=== PATIENT | female | born 1950 | race Caucasian/White ===

== ENCOUNTER → 2017-04-07 | Outpatient (CLI) | payer MEDICARE, OTHER ==
[~2017-04-07] MED LIST: ASPIRIN 81M81 MG/TA2 PO; CELEXA 20MG20 MG/TAB PO; CORGARD80 MG PO; DUO-KAPS1 CAP PO; FISH OIL SUPER1 SGL PO; HCTZ 25MG TAB25 MG PO; K-99595 MG PO; KLOR-CON 1010 MEQ PO; LEVAQUIN 2250 MG/TAB PO; MAGNESIUM CITRA1 TAB PO; MAVIK2 MG PO; NORVASC 5MG5 MG/TAB PO; VITAMIN B122500 MCG PO; VITAMINC1000TA PO
== END ==
LOC: COL.RAD 08:55
DX: N30.20 Other chronic cystitis without hematuria (principal)

== ENCOUNTER → 2017-08-15 | Outpatient (CLI) | payer OTHER, MEDICARE | LOC: MC.RAD 14:20 | DX: Z12.31 Encounter for screening mammogram for malignant neoplasm of breast (principal); N64.89 Other specified disorders of breast ==

== ENCOUNTER → 2017-08-22 | Outpatient (CLI) | payer OTHER, MEDICARE | LOC: MC.RAD 07:30 | DX: N63 Unspecified lump in breast (principal); N64.89 Other specified disorders of breast ==

== ENCOUNTER → 2017-08-26 | Outpatient (CLI) | payer OTHER, MEDICARE | LOC: MC.RAD 09:55 | DX: Z12.31 Encounter for screening mammogram for malignant neoplasm of breast (principal); N63 Unspecified lump in breast; Z98.82 Breast implant status ==

== ENCOUNTER 2017-09-12 06:59 | Day surgery (SDC) | payer BC, MEDICARE ==
[~2017-09-12] VITALS: Ht 167.6 cm; Wt 106.6 kg
[2017-09-12 08:33] VITALS: BP 130/72; PULSE 62; TEMP 97.9
[2017-09-12] MEDS ORDERED: MAVIK4 MG PO (09:00)
[2017-09-12] MEDS ORDERED: TRICOR 48MG48 MG PO (09:01)
[2017-09-12] MEDS ORDERED: CALCIUM CARBON650 M2 PO (09:02)
[2017-09-12] MEDS ORDERED: TURMERIC500 MG PO (09:03)
[2017-09-12] MEDS ORDERED: GINKGO2 PO (09:04)
[2017-09-12] MEDS ORDERED: B-121000 MCG PO (09:05)
[2017-09-12] MEDS ORDERED: FOLIC ACID800 MCG PO (09:08)
[2017-09-12] MEDS ORDERED: KRILL OIL 3001 EACH PO (09:09)
[2017-09-12] MEDS ORDERED: CRANBERRY 100 M1 SGL PO (09:10)
[2017-09-12 10:31] VITALS: BP 99/52; PULSE 56
[2017-09-12] MEDS ORDERED: NORCO 325 MG-51 TAB PO (10:32)
[2017-09-12 10:46] VITALS: BP 106/56; PULSE 55
[2017-09-12 11:01] VITALS: BP 102/61; PULSE 62
[2017-09-12 11:16] VITALS: BP 123/67; PULSE 63
== END 2017-09-12 11:47 | disposition home or self-care (01) ==
LOC: SDCO 06:59
DX: D05.12 Intraductal carcinoma in situ of left breast (principal); E66.09 Other obesity due to excess calories; Z68.39 Body mass index [BMI] 39.0-39.9, adult; I12.9 Hypertensive chronic kidney disease with stage 1 through stage 4 chronic kidney disease, or unspecified chronic kidney disease; N18.3 Chronic kidney disease, stage 3 (moderate)
CPT/HCPCS: J0690; J2250; J2704; J3010; J7030

== ENCOUNTER → 2018-04-20 | Outpatient (CLI) | payer MEDICARE, OTHER ==
[~2018-04-20] MED LIST changes: +B-121000 MCG PO; +CALCIUM CARBON650 M2 PO; +CRANBERRY 100 M1 SGL PO; +FOLIC ACID800 MCG PO; +GINKGO2 PO; +KRILL OIL 3001 EACH PO; +MAVIK4 MG PO; +NORCO 325 MG-51 TAB PO; +TRICOR 48MG48 MG PO; +TURMERIC500 MG PO
== END ==
LOC: MC.RAD 08:26
DX: Z08 Encounter for follow-up examination after completed treatment for malignant neoplasm (principal); N63.21 Unspecified lump in the left breast, upper outer quadrant; Z98.890 Other specified postprocedural states; Z85.3 Personal history of malignant neoplasm of breast

== ENCOUNTER → 2018-09-07 | Outpatient (CLI) | payer MEDICARE, OTHER | LOC: MC.RAD 13:09 | DX: Z12.31 Encounter for screening mammogram for malignant neoplasm of breast (principal); Z98.890 Other specified postprocedural states ==

== ENCOUNTER 2018-11-06 08:58 | Inpatient (IN) | payer MEDICARE, OTHER ==
[~2018-11-06] VITALS: Ht 167.6 cm; Wt 111.6 kg
[2018-11-06 09:27] VITALS: BP 133/59; PULSE 61; TEMP 97.2
[2018-11-06] MEDS ORDERED: OMEGA-3 1000 MG1 CAP PO (09:50)
[2018-11-06 11:09] LABS: BASO % 0.3 % (0.0-2.0); EOS # 0.3 (0.0-0.7); EOS % 2.7 % (0-4.0); GRAN # 7.1 (1.4-6.5); GRAN % 72.6 % (42.2-75.2); HEMATOCRIT 37.1 % (37.0-47.0); HEMOGLOBIN 11.5 g/dl (12.5-16.0); LYMPH # 1.4 (1.2-3.4); LYMPH % 14.5 % (20.0-51.0); MEAN CELL VOLUME 84 fl (80.0-100.0); MEAN CORPUSCULAR HEMOGLOBIN 26 pg (27.0-31.0); MEAN CORPUSCULAR HGB CONC 31 g/dl (33.0-37.0); MEAN PLATELET VOLUME 10.4 fl (7.4-10.4); MONO # 0.9 (0.1-0.6); PLATELET COUNT 290 K/mm3 (130-400); RED BLOOD COUNT 4.41 M/mm3 (4.10-5.30); REDCELL DISTRIBUTION WIDTH-CV 15.7 % (11.5-14.5)
[2018-11-06 11:16] LABS: INR 1.1 (0.8-3.0); PROTHROMBIN TIME 12.1 SECONDS (9.7-12.8)
[2018-11-06 11:18] LABS: PARTIAL THROMBOPLASTIN TIME 33.1 SECONDS (26.0-37.0)
[2018-11-06 11:30] LABS: BILIRUBIN,TOTAL 0.5 mg/dL (0.0-1.0); CALCIUM 10.2 mg/dL (8.4-10.2); TOTAL PROTEIN 7.3 gm/dL (6.4-8.2)
[2018-11-06 11:31] LABS: CREATININE, serum 4.6 mg/dL (0.52-1.25)
[2018-11-06 12:04] VITALS: BP 143/63; PULSE 63; TEMP 97.5
[2018-11-06] MEDS ORDERED: LASIX ORAL S10 MG/ML PO (12:33)
[2018-11-06] MEDS ORDERED: APRESOLINE50 MG PO (12:34)
[2018-11-06 14:26] LABS: COLLECTION METHOD CLEAN CATCH
[2018-11-06 14:42] LABS: PH 6 (5-8); SQUAMOUS EPITHELIAL None Seen /hpf; URINE APPEARANCE Clear; URINE BACTERIA Rare /hpf; URINE BILIRUBIN Negative (NEGATIVE); URINE BLOOD 1+ (NEGATIVE); URINE COLOR Yellow; URINE GLUCOSE 1+ (NEGATIVE); URINE KETONE Negative (NEGATIVE); URINE LEUKOCYTE ESTERASE 2+ (NEGATIVE); URINE NITRATE Negative (NEGATIVE); URINE PROTEIN(semi-quant) 2+ (NEGATIVE); URINE RBC 0-2 /hpf; URINE UROBILINOGEN Negative (NEGATIVE); URINE WBC 20-50 /hpf
[2018-11-06 15:58] VITALS: BP 150/56; PULSE 66; TEMP 98.2
[2018-11-06 19:55] VITALS: BP 145/57; PULSE 64; TEMP 97.5
[2018-11-07] VITALS (7 sets, daily range): BP systolic 131–157; BP diastolic 50–65; PULSE 58–64; TEMP 97.7–98.3
[2018-11-07 07:15] LABS: ALBUMIN 3.5 gm/dL (3.5-5.0); CALCIUM 9.6 mg/dL (8.4-10.2); PHOSPHOROUS 5.5 mg/dL (2.5-4.5); POTASSIUM 3.9 mmol/L (3.4-5.0)
[2018-11-07 07:27] LABS: CREATININE, serum 4.81 mg/dL (0.52-1.25)
[2018-11-08 03:48] VITALS: BP 159/71; PULSE 64; TEMP 97.9
[2018-11-08 07:18] LABS: BASO % 0.3 % (0.0-2.0); EOS # 0.2 (0.0-0.7); EOS % 2.7 % (0-4.0); GRAN % 67.6 % (42.2-75.2); HEMATOCRIT 38.6 % (37.0-47.0); LYMPH # 1.7 (1.2-3.4); LYMPH % 19.1 % (20.0-51.0); MEAN CELL VOLUME 83 fl (80.0-100.0); MEAN CORPUSCULAR HEMOGLOBIN 26 pg (27.0-31.0); MEAN CORPUSCULAR HGB CONC 31 g/dl (33.0-37.0); MEAN PLATELET VOLUME 10.6 fl (7.4-10.4); MONO # 0.8 (0.1-0.6); MONO % 9.5 % (1.7-9.3); PLATELET COUNT 296 K/mm3 (130-400); RED BLOOD COUNT 4.65 M/mm3 (4.10-5.30); REDCELL DISTRIBUTION WIDTH-CV 15.3 % (11.5-14.5)
[2018-11-08 07:31] LABS: ALBUMIN 3.8 gm/dL (3.5-5.0); PHOSPHOROUS 5.7 mg/dL (2.5-4.5)
[2018-11-08 07:36] LABS: CREATININE, serum 5.1 mg/dL (0.52-1.25)
[2018-11-08 07:50] VITALS: BP 134/66; PULSE 56; TEMP 97.8
[2018-11-08 10:59] VITALS: BP 159/69; PULSE 61; TEMP 97.5
[2018-11-08] MEDS ORDERED: MAVIK4 MG PO (13:57)
[2018-11-08] MEDS ORDERED: LEVAQUIN 5500 MG/TA1 PO (14:01)
[2018-11-08] MEDS ORDERED: LASIX 20MG TABL20 MG PO (14:02)
== END 2018-11-08 14:55 | disposition home or self-care (01) | DRG 683 ==
LOC: MEDICAL 08:58
PROVIDERS: Internal Medicine Nephrology
DX: N17.0 Acute kidney failure with tubular necrosis (principal); N39.0 Urinary tract infection, site not specified; I12.9 Hypertensive chronic kidney disease with stage 1 through stage 4 chronic kidney disease, or unspecified chronic kidney disease; B96.20 Unspecified Escherichia coli [E. coli] as the cause of diseases classified elsewhere; N18.4 Chronic kidney disease, stage 4 (severe); E66.01 Morbid (severe) obesity due to excess calories; Z68.39 Body mass index [BMI] 39.0-39.9, adult; F17.210 Nicotine dependence, cigarettes, uncomplicated; E78.5 Hyperlipidemia, unspecified; N25.81 Secondary hyperparathyroidism of renal origin; Z85.828 Personal history of other malignant neoplasm of skin
CPT/HCPCS: OP

== ENCOUNTER → 2018-11-13 | Outpatient (CLI) | payer MEDICARE, OTHER ==
[~2018-11-13] MED LIST changes: +APRESOLINE50 MG PO; +LASIX 20MG TABL20 MG PO; +LASIX ORAL S10 MG/ML PO; +LEVAQUIN 5500 MG/TA1 PO; +OMEGA-3 1000 MG1 CAP PO
== END ==
LOC: COL.VAS 10:00
DX: N18.4 Chronic kidney disease, stage 4 (severe) (principal)
CPT/HCPCS: G0365

== ENCOUNTER → 2019-05-21 | Outpatient (CLI) | payer MEDICARE, OTHER | LOC: COL.PUL 10:53 | DX: I34.0 Nonrheumatic mitral (valve) insufficiency (principal); I51.7 Cardiomegaly; Z77.22 Contact with and (suspected) exposure to environmental tobacco smoke (acute) (chronic) | CPT/HCPCS: J7674 ==

== ENCOUNTER 2019-10-21 11:54 | Inpatient (IN) | payer MEDICARE, OTHER ==
[~2019-10-21] VITALS: Ht 167.6 cm; Wt 88.1 kg
[~2019-10-21 11:54] MED LIST changes: -LOPRESSOR 225 MG/TAB PO; -NEURONTIN100 MG/CAP PO; -NORVASC 10MG10 MG PO; -THEO-24400 MG PO; -ZOLOFT 50MG50 MG PO
[2019-10-21 12:31] LABS: MEAN CELL VOLUME 89 fl (80.0-100.0); MEAN CORPUSCULAR HGB CONC 31 g/dl (33.0-37.0); MEAN PLATELET VOLUME 9.7 fl (7.4-10.4); PLATELET COUNT 216 K/mm3 (130-400); RED BLOOD COUNT 3.49 M/mm3 (4.10-5.30); REDCELL DISTRIBUTION WIDTH-CV 18.5 % (11.5-14.5)
[2019-10-21 12:33] LABS: HEMATOCRIT 31.1 % (37.0-47.0); HEMOGLOBIN 9.7 g/dl (12.5-16.0); MEAN CORPUSCULAR HEMOGLOBIN 28 pg (27.0-31.0)
[2019-10-21 12:44] LABS: ALBUMIN 3.7 gm/dL (3.5-5.0); BILIRUBIN,TOTAL 0.6 mg/dL (0.0-1.0); CALCIUM 9.9 mg/dL (8.4-10.2); CREATININE, serum 10.23 (0.52-1.25); POTASSIUM 4.1 mmol/L (3.4-5.0)
[2019-10-21 12:56] LABS: C-REACTIVE PROTEIN 15.8 mg/dL (0.0-0.9)
[2019-10-21 12:59] LABS: BAND 40 % (0-10); LYMPHOCYTE 2 % (20.0-51.0); METAMYELOCYTE 2 % (0-0); NEUTROPHILS 53 % (42.0-75.2); PLATELET ESTIMATE NORMAL (NORMAL)
[2019-10-21 13:10] LABS: TROPONIN-I 0.027 ng/mL (0.000-0.035)
[2019-10-21] MEDS ORDERED: NORVASC 10MG10 MG PO (14:14)
[2019-10-21] MEDS ORDERED: LOPRESSOR 225 MG/TAB PO (14:16)
[2019-10-21] MEDS ORDERED: THEO-24400 MG PO (14:16)
[2019-10-21] MEDS ORDERED: ZOLOFT 50MG50 MG PO (14:16)
[2019-10-21] MEDS ORDERED: NEURONTIN100 MG/CAP PO (14:17)
[2019-10-21 16:45] VITALS: BP 150/61; PULSE 97; TEMP 98
--- NOTE | 2019-10-21 18:41 | NUR ---
Assessment completed, alert/oriented, vital signs stable, denies pain, reports feeling genearal fatigue and malaise, she has a non-productive cough/ lungs coarse and diminished, Negative for influenza A & B, WBC >21, blood Cx and Urine Cx collected, heart RRR/ distal pulses are palpable, she has left arm dialysis fistula/ +bruit and thrill, I have updated meds lists/ pharmacy/allergies, I have notified of her arrival to the floor
[2019-10-21 19:07] LABS: COLLECTION METHOD CLEAN CATCH
[2019-10-21 19:09] LABS: MUCOUS Present /lpf; PH 5 (5-8); SQUAMOUS EPITHELIAL 0-2 /hpf; URINE APPEARANCE Clear; URINE BACTERIA None Seen /hpf; URINE BILIRUBIN Negative (NEGATIVE); URINE BLOOD 3+ (NEGATIVE); URINE COLOR Amber; URINE GLUCOSE Negative (NEGATIVE); URINE KETONE Negative (NEGATIVE); URINE LEUKOCYTE ESTERASE 2+ (NEGATIVE); URINE NITRATE Negative (NEGATIVE); URINE PROTEIN(semi-quant) 2+ (NEGATIVE); URINE RBC >50 /hpf; URINE UROBILINOGEN Negative (NEGATIVE)
[2019-10-21 19:34] VITALS: BP 128/47; PULSE 89; TEMP 98.9
--- NOTE | 2019-10-21 20:30 | NUR ---
Initial shift assessment done- sitting at edge of bed- no requests, visiting with daughter- denies pain. Tele on, non productive cough. Had some home meds at bedside- teaching done regarding we will give all her meds here- safety issue so we know what she has taken- states understanding -will have daughter take her meds home-
[2019-10-21 23:19] VITALS: BP 130/51; PULSE 80; TEMP 98.9
--- NOTE | 2019-10-22 04:40 | NUR ---
Dr. Brar called with positive blood cultures results- e coli,,order to continue cefipime QD 2 gm IV
--- NOTE | 2019-10-22 06:19 | NUR ---
No requests- has been resting on and off-VSS
--- NOTE | 2019-10-22 07:00 | NUR ---
Pt is sitting up in bed. Denies any needs at this time. Call light is within reach.
[2019-10-22 07:36] LABS: MEAN CELL VOLUME 90 fl (80.0-100.0); MEAN CORPUSCULAR HGB CONC 31 g/dl (33.0-37.0); MEAN PLATELET VOLUME 10.5 fl (7.4-10.4); PLATELET COUNT 211 K/mm3 (130-400); RED BLOOD COUNT 3.03 M/mm3 (4.10-5.30); REDCELL DISTRIBUTION WIDTH-CV 18.9 % (11.5-14.5)
[2019-10-22 07:39] LABS: ALBUMIN 3.3 gm/dL (3.5-5.0); CALCIUM 9.7 mg/dL (8.4-10.2); CREATININE, serum 10.68 (0.52-1.25); POTASSIUM 4.7 mmol/L (3.4-5.0)
[2019-10-22 07:42] LABS: HEMATOCRIT 27.3 % (37.0-47.0); HEMOGLOBIN 8.5 g/dl (12.5-16.0); MEAN CORPUSCULAR HEMOGLOBIN 28 pg (27.0-31.0)
--- NOTE | 2019-10-22 08:30 | NUR ---
Pt is awake and A/Ox4, sitting up in bed eating breakfast. Pt denies pain or discomfort. Saline lock to right AC is free of complications. Fistula to left arm noted. Pt is up as tolerated in room. Denies any other needs. [facility] student, Willa assisting with AM cares.
--- NOTE | 2019-10-22 08:45 | NUR ---
BINA Pérez notified of critical lab values and that pt does not have current order for VTE prophalyxis.
[2019-10-22 09:05] LABS: BAND 29 % (0-10); LYMPHOCYTE 5 % (20.0-51.0); MYELOCYTE 1 % (0-0); NEUTROPHILS 65 % (42.0-75.2); PLATELET ESTIMATE NORMAL (NORMAL)
--- NOTE | 2019-10-22 10:18 | NUR ---
I agree with [facility] students shift assessment.
--- NOTE | 2019-10-22 10:50 | NUR ---
Initial visit; Patient thanked Building Repair Maintenance Supervisor for looking in on her, letting her know of the availability of spiritual care.
[2019-10-22 12:44] VITALS: BP 156/60; PULSE 81; TEMP 98.4
--- NOTE | 2019-10-22 13:56 | NUR ---
Primary nurse was assisted with [phone] patient care by [facility] students Willa Najera, [phone] by Isabella Lucio & [facility] instructor Starr Martinez RN-.
[2019-10-22 15:12] VITALS: BP 125/73; PULSE 89; TEMP 98.4
--- NOTE | 2019-10-22 15:40 | NUR ---
Pulp Drier Firer met with patient to discuss discharge planning. Patient lives in [place] with her , Prosper ([phone]) and sees Dr. Hillman for primary care. Patient obtains her medications from [facility] with no difficulty although she reports there was a recent incident in which she did not get her antibiotic filled due to a mix up with the [facility] Pharmacist. Patient reports independence with ADLS and does not have any DME. Patient doesn't think she has DPOA-HC and wanted to complete the form with SW. AWA assisted patient in completing form which designates her daughter Maggie. AWA and RNJosselyn witnessed patient signature. AWA placed copy of form in chart and provided original and two copies to patient. Patient plans to return home upon discharge.
[2019-10-22 18:16] LABS: URINE PROTEIN:CREAT RATIO 4.96 (0.00-0.14)
--- NOTE | 2019-10-22 18:27 | NUR ---
Pt has had an uneventful day. Pt continues to have minimal urine output despite increased oral intake. Pt denies any other needs.
[2019-10-22 20:19] VITALS: BP 134/50; PULSE 89; TEMP 99
[2019-10-22 23:22] VITALS: BP 141/56; PULSE 60; TEMP 98.3
--- NOTE | 2019-10-23 00:40 | NUR ---
Patient assessed at this time. Alert and oriented x 4, and able to make needs known. Denies having pain and discomfort at this time. Right AC INT flushed. Site is without redness, warmth, swelling, and pain. AV fistula to left forearm with positive bruit and thrill. Denies having SOB and dyspnea. Occasional moist cough. Reports sputum is clear, thick, and a moderate amount. Unable to observe at this time. LS CTA in upper lobes, diminished in lower lobes. Respirations even and unlabored. HRR. Telemetry in place-normal sinus. Capillary refill less than 3 seconds. Non-tenting skin turgor. BSAx4. Abdomen soft and non-tender. Reports she had a small amount of diarrea earlier this shift. No edema noted. Voices no questions, needs, or concerns at this time. In recliner with call light within reach.
[2019-10-23 03:29] VITALS: BP 143/63; PULSE 85
[2019-10-23 07:27] VITALS: BP 130/64; PULSE 84; TEMP 98.8
--- NOTE | 2019-10-23 08:00 | NUR ---
Assessment completed, alert/oriented, vital signs stable, denies pain or discomfort, reports still having intermittent coughing spells, lungs are diminished but clear, heart RRR, distal pulses are palpable, left arm fistula/ +bruit and thrill, morning labs are still pending, morning meds given and she is waiting on breakfast, denies other needs at this time
[2019-10-23 08:33] LABS: MEAN CELL VOLUME 89 fl (80.0-100.0); MEAN CORPUSCULAR HGB CONC 31 g/dl (33.0-37.0); MEAN PLATELET VOLUME 10.6 fl (7.4-10.4); PLATELET COUNT 193 K/mm3 (130-400); RED BLOOD COUNT 2.93 M/mm3 (4.10-5.30); REDCELL DISTRIBUTION WIDTH-CV 18.4 % (11.5-14.5)
[2019-10-23 08:55] LABS: ALBUMIN 3.2 gm/dL (3.5-5.0); CALCIUM 9.4 mg/dL (8.4-10.2); CREATININE, serum 10.59 (0.52-1.25); POTASSIUM 4.2 mmol/L (3.4-5.0)
[2019-10-23 08:56] LABS: HEMATOCRIT 26.1 % (37.0-47.0); HEMOGLOBIN 8.2 g/dl (12.5-16.0); MEAN CORPUSCULAR HEMOGLOBIN 28 pg (27.0-31.0)
[2019-10-23 10:25] LABS: ANISOCYTOSIS 1+; BAND 1 % (0-10); EOSINOPHIL 1 % (0-4); LYMPHOCYTE 6 % (20.0-51.0); NEUTROPHILS 89 % (42.0-75.2); PLATELET ESTIMATE NORMAL (NORMAL)
[2019-10-23 11:29] VITALS: BP 141/66; PULSE 93; TEMP 98.5
[2019-10-23 16:45] VITALS: BP 154/70; PULSE 84; TEMP 97.5
[2019-10-23 19:46] VITALS: BP 131/60; PULSE 81; TEMP 98.6
--- NOTE | 2019-10-23 20:13 | NUR ---
Pt report from BINA Mckeon. Pt is sitting is recliner. No c/o pain or discomfort at this time. Assessment completed. Pt call light and phone within reach. Will continue to monitor. No further concerns at this time.
[2019-10-24 00:01] VITALS: BP 139/54; PULSE 81; TEMP 98.1
--- NOTE | 2019-10-24 00:40 | NUR ---
Pt is laying in bed resting. No c/o pain, however her cough is bothersome. Pt call light and phone is within reach. Bed is locked and in low position. No further concerns at this time.
[2019-10-24 03:34] VITALS: BP 141/59; PULSE 84; TEMP 98.4
--- NOTE | 2019-10-24 07:39 | NUR ---
Report given to BINA Thibodeaux. Pt had an uneventful night. No further concerns.
[2019-10-24 07:53] VITALS: BP 147/68; PULSE 78; TEMP 97.7
[2019-10-24 08:06] LABS: MEAN CELL VOLUME 88 fl (80.0-100.0); MEAN CORPUSCULAR HGB CONC 32 g/dl (33.0-37.0); MEAN PLATELET VOLUME 10.5 fl (7.4-10.4); PLATELET COUNT 186 K/mm3 (130-400); RED BLOOD COUNT 2.88 M/mm3 (4.10-5.30); REDCELL DISTRIBUTION WIDTH-CV 18.1 % (11.5-14.5)
[2019-10-24 08:08] LABS: ALBUMIN 3.3 gm/dL (3.5-5.0); CALCIUM 9.8 mg/dL (8.4-10.2); CREATININE, serum 10.21 (0.52-1.25); HEMATOCRIT 25.4 % (37.0-47.0); MEAN CORPUSCULAR HEMOGLOBIN 28 pg (27.0-31.0); POTASSIUM 3.9 mmol/L (3.4-5.0)
[2019-10-24 08:33] LABS: ANISOCYTOSIS 1+; BAND 7 % (0-10); EOSINOPHIL 2 % (0-4); LYMPHOCYTE 6 % (20.0-51.0); METAMYELOCYTE 1 % (0-0); NEUTROPHILS 78 % (42.0-75.2); PLATELET ESTIMATE NORMAL (NORMAL)
--- NOTE | 2019-10-24 11:37 | NUR ---
Assessment completed, alert/oriented, vital signs stable and afebrile, denies pain or discomfort, stated she is still just feeling weak and tired with no energy, stated not eating much as nothing tastes good to her, WBC improving slowly and is at 18 today, reports her urine has cleared up/ for some reason someone removed hat and has not been measuring output/ I have instructed her that we need to be keeping accurate I/O's to help monitor her renal function and she verbalized understanding, lungs CTA/ no resp.difficulty noted, heart RRR/ distal pulses are palpable, denies other needs at this time,
[2019-10-24 12:22] VITALS: BP 145/71; PULSE 77; TEMP 98.6
[2019-10-24 16:13] VITALS: BP 138/58; PULSE 79; TEMP 98.2
--- NOTE | 2019-10-24 20:15 | NUR ---
Pt sitting in recliner. No c/o pain or discomfort. Assessment complete. No further concerns at this time.
[2019-10-24 20:31] VITALS: BP 146/64; PULSE 86; TEMP 99.1
[2019-10-25] VITALS (7 sets, daily range): BP systolic 131–159; BP diastolic 52–72; PULSE 77–119; TEMP 97.4–98.5
--- NOTE | 2019-10-25 05:57 | NUR ---
PT HAD AN UNREMARKABLE NIGHT. RESTED IN THE RECLINER THE MAJORITY OF THE NIGHT. NO C/O PAIN OR DISCOMFORT. CONTINUING TO FEEL BETTER, STILL NOT FEELING ANY FOOD TASTES GOOD. NO FURTHER CONCERNS AT THIS TIME.
[2019-10-25 06:40] LABS: MEAN CELL VOLUME 88 fl (80.0-100.0); MEAN CORPUSCULAR HGB CONC 31 g/dl (33.0-37.0); PLATELET COUNT 213 K/mm3 (130-400); RED BLOOD COUNT 3.09 M/mm3 (4.10-5.30); REDCELL DISTRIBUTION WIDTH-CV 17.7 % (11.5-14.5)
[2019-10-25 06:43] LABS: HEMATOCRIT 27.2 % (37.0-47.0); HEMOGLOBIN 8.4 g/dl (12.5-16.0); MEAN CORPUSCULAR HEMOGLOBIN 27 pg (27.0-31.0)
[2019-10-25 06:57] LABS: ALBUMIN 3.5 gm/dL (3.5-5.0); CALCIUM 9.8 mg/dL (8.4-10.2); CREATININE, serum 9.98 (0.52-1.25); PHOSPHOROUS 6.6 mg/dL (2.5-4.5); POTASSIUM 3.9 mmol/L (3.4-5.0)
[2019-10-25 07:37] LABS: BAND 4 % (0-10); EOSINOPHIL 1 % (0-4); LYMPHOCYTE 9 % (20.0-51.0); METAMYELOCYTE 6 % (0-0); MYELOCYTE 2 % (0-0); NEUTROPHILS 75 % (42.0-75.2); PLATELET ESTIMATE NORMAL (NORMAL)
[2019-10-25 08:04] LABS: PATHOLOGY DIFF REVIEW OK
--- NOTE | 2019-10-25 09:00 | NUR ---
Assessment completed. Patient alert and oriented x4. IV site dry and intact, no signs of infection or infiltration. Left forarm filstula palpated and ascultated. POC discussed w patient. Pt sitting by window, call light in reach.
--- NOTE | 2019-10-25 13:46 | NUR ---
AWA met with the patient to review discharge plan and to address concerns the patient's RN shared with AWA about the patient's having dementia and being at home alone. The patient reports that their children and her [id number] have been checking in on the patient while she is here. She states that she should tentatively be ready to discharge tomorrow and plans to return back home with her . She had no other questions or concerns for SW. AWA to continue to follow.
--- NOTE | 2019-10-25 18:00 | NUR ---
Assessment and note entered by BINA Brown reviewed and agreed by this nurse. Pt with uneventful shift, continues with decreased appetite, "doesn't like the food." Call light in reach.
--- NOTE | 2019-10-25 20:10 | NUR ---
PT SITTING UP IN BED. NO C/O OF PAIN. SOME DISCOMFORT FROM NAUSEA/VOMITTING. PT APPETITE STILL DECREASED. DID NOT EAT DINNER, JUST A COOKIE AND SOME GRAPES. PT STATING THAT SHE DOESN'T UNDERSTAND WHY SHE HAS BECOME INCREASINGLY CONFUSED. PT STATES SHE HAS A HARD TIME KEEPING HER TRAIN OF THOUGHT. PT DISPLAYS CONSIDERABLE AMOUNT OF ANXIETY REGARDING HER CONDITION AND WHY SHE FEELS THOUGH SHE ISN'T GETTING ANY BETTER. ASSESSMENT COMPLETED, CALL LIGHT AND PERSONAL BELONGINGS WITHIN REACH. NO FURTHER CONCERNS AT THIS TIME.
[2019-10-26 03:52] VITALS: BP 144/57; PULSE 85; TEMP 97.8
[2019-10-26 07:23] VITALS: BP 151/65; PULSE 80; TEMP 98
[2019-10-26 07:30] LABS: ALBUMIN 3.4 gm/dL (3.5-5.0); CALCIUM 10.3 mg/dL (8.4-10.2); CREATININE, serum 9.57 (0.52-1.25); PHOSPHOROUS 7.1 mg/dL (2.5-4.5); POTASSIUM 3.9 mmol/L (3.4-5.0)
[2019-10-26 07:36] LABS: MEAN CELL VOLUME 87 fl (80.0-100.0); MEAN CORPUSCULAR HGB CONC 31 g/dl (33.0-37.0); MEAN PLATELET VOLUME 10.8 fl (7.4-10.4); PLATELET COUNT 228 K/mm3 (130-400); RED BLOOD COUNT 2.97 M/mm3 (4.10-5.30); REDCELL DISTRIBUTION WIDTH-CV 17.2 % (11.5-14.5)
[2019-10-26 07:40] LABS: HEMATOCRIT 25.8 % (37.0-47.0); HEMOGLOBIN 8.1 g/dl (12.5-16.0); MEAN CORPUSCULAR HEMOGLOBIN 27 pg (27.0-31.0)
[2019-10-26 08:44] LABS: ANISOCYTOSIS 1+; BAND 2 % (0-10); EOSINOPHIL 2 % (0-4); HYPOCHROMIA 2+; LYMPHOCYTE 9 % (20.0-51.0); METAMYELOCYTE 1 % (0-0); MYELOCYTE 3 % (0-0); NEUTROPHILS 79 % (42.0-75.2); NUCLEATED RED BLOOD CELL 1 (0-6); PLATELET ESTIMATE NORMAL (NORMAL)
[2019-10-26 12:08] VITALS: BP 136/72; PULSE 78; TEMP 98
[2019-10-26 15:54] VITALS: BP 162/70; PULSE 82; TEMP 98.4
--- NOTE | 2019-10-26 19:10 | NUR ---
Patient left for CT at this time.
--- NOTE | 2019-10-26 19:40 | NUR ---
Patient returned from CT at this time.
--- NOTE | 2019-10-26 19:45 | NUR ---
Right AC not flushing at this time. IV catheter dressing has bloody drainage and catheter tip appears bent. Restarted in right wrist by BINA Nolen. Levaquin infusion started. Denies other needs at this time. Family at bedside.
--- NOTE | 2019-10-26 19:56 | NUR ---
Patient returned from CT scan at this time.
--- NOTE | 2019-10-26 20:00 | NUR ---
Dr. Brar called stating to inform patient and patient family patient CT was negative. Notified patient and family at this time.
[2019-10-26 21:13] VITALS: BP 158/57
--- NOTE | 2019-10-26 21:15 | NUR ---
Resting in recliner. Assessment complete. Lungs clear. Heart sounds normal. Bowels active x4. Pulses strong throughout. No edema noted at this time. INT right wrist flushed without complications. Denies pain. Patient having increased difficulty with following simple directions. Remains alert and orientated. Dr. Brar made aware by previous shift. Patient had head CT tonight which Dr. Brar called and informed patient and family CT was negative. Will continue to closely monitor patient.
--- NOTE | 2019-10-26 21:55 | NUR ---
Patient assessed to restroom and to bed at this time.
[2019-10-26 23:37] VITALS: BP 165/72; PULSE 78; TEMP 98.6
[2019-10-27] VITALS (7 sets, daily range): BP systolic 113–169; BP diastolic 53–78; PULSE 80–117; TEMP 97.6–98.7
--- NOTE | 2019-10-27 01:45 | NUR ---
Patient sitting up in bed. Repeatly stating "I dont know whats wrong with me, I dont know." Informed patient Dr. Brar will be in in AM to assess patient . Patient reports hunger. Provided with snack. Will monitor.
--- NOTE | 2019-10-27 03:28 | NUR ---
Patient up to restroom. Simple directions difficult for patient to follow. Difficulty with sentences and thought. Returned to bed. Will continue to monitor.
--- NOTE | 2019-10-27 06:03 | NUR ---
Patient sitting up in bed this AM talking to self. When questioned if patient is seeing people in room patient states "Am I talking to anyone?" Patient disorientated at this time. Asked staff "where am I?" erin Flores supervisior calling Dr. Brar this AM and will notify Dr. Brar of patient changes.
--- NOTE | 2019-10-27 07:16 | NUR ---
Report given to BINA Mckeon
[2019-10-27 08:45] LABS: MEAN CELL VOLUME 87 fl (80.0-100.0); MEAN CORPUSCULAR HGB CONC 32 g/dl (33.0-37.0); MEAN PLATELET VOLUME 10.7 fl (7.4-10.4); PLATELET COUNT 254 K/mm3 (130-400); RED BLOOD COUNT 2.92 M/mm3 (4.10-5.30); REDCELL DISTRIBUTION WIDTH-CV 17.1 % (11.5-14.5)
[2019-10-27 08:48] LABS: HEMATOCRIT 25.5 % (37.0-47.0); HEMOGLOBIN 8.1 g/dl (12.5-16.0); MEAN CORPUSCULAR HEMOGLOBIN 28 pg (27.0-31.0)
[2019-10-27 09:01] LABS: ALBUMIN 3.5 gm/dL (3.5-5.0); CALCIUM 10.2 mg/dL (8.4-10.2); CREATININE, serum 9.48 (0.52-1.25); PHOSPHOROUS 6.9 mg/dL (2.5-4.5); POTASSIUM 3.7 mmol/L (3.4-5.0)
[2019-10-27 09:17] LABS: ANISOCYTOSIS 1+; HYPOCHROMIA 2+; LYMPHOCYTE 9 % (20.0-51.0); METAMYELOCYTE 4 % (0-0); MYELOCYTE 2 % (0-0); NEUTROPHILS 80 % (42.0-75.2)
[2019-10-27 09:18] LABS: PLATELET ESTIMATE NORMAL (NORMAL)
--- NOTE | 2019-10-27 10:54 | NUR ---
Assessment completed, alert/ oriented to person and place, she is easily distracted and has trouble following simple commands, she is having some trouble finding her words and sorting her thoughts at times, altered mental status seems to be worsening, CT head last night was negative, I have discussed plan of care with Elisa Xavier RN and , we have been in contact with family to keep them updated on plan of care as well, WBC improved slightly down to 16 today, creatnine 9.4, she is still weak and unsteady on her feet, we have hernando her a high fall risk and placed in propert p/c, will continue to monitor
--- NOTE | 2019-10-27 16:02 | NUR ---
SW met with the patient, patient's mother (Daria), and [id number] (Lee Ann) to review discharge plan and to discuss PT/OT's recommendations of post-acute rehab and having AMS. The patient's mother and gnekzlkv-gy-pde agree that the patient would not be able to discharge staight to home. They recommended SW contact her daughter and DPOA-HC, Maggie. SW contacted the patient's daughter, Maggie. Maggie is in agreeance with the patient needing post-acute rehab. SW explained Medicare.gov's list of nursing homes around [place]. The patient's daughter preferred 1) [facility] 2) [facility]. SW then reviewed these preferences with the patient and presented and explained the Patient Choice Form. The patient was agreeable to these preferences. She states that she is not up to signing, but gave SW her verbal consent. SW provided her a copy. AWA contacted and faxed a referral to both facilities. SW awaiting their screens.
--- NOTE | 2019-10-27 18:40 | NUR ---
Patients condition is unchanged throughout the shit, she remains menatlly altetered, still having trouble following simple commands/ Disorganized thoughts and trouble expressing her self at times, family has been kept in the loop by Dr. Brar and plan of care discussed
--- NOTE | 2019-10-27 20:00 | NUR ---
Assessment complete. Family at bedside. Alert. Verbal but slow to respond. Unable to verbalize curent date but pt understands why she is here. Follows command. Denies any pain or discomfort at this time. INT to RW patent, flushed, dressing CDI. LFA fistula bruit and thrill present. SCD in place while laying in bed. Fall precautions in place. Tele monitor in place, leads checked. Needs met at this time. Call light within reach.
--- NOTE | 2019-10-28 05:46 | NUR ---
Pt uneventful during this shift. Meds given as ordered. Fall precautions in place. Call light within reach.
--- NOTE | 2019-10-28 07:07 | NUR ---
Report given to BINA Sanz.
[2019-10-28 07:55] VITALS: BP 132/54; PULSE 81
[2019-10-28 08:26] LABS: MEAN CELL VOLUME 88 fl (80.0-100.0); MEAN CORPUSCULAR HGB CONC 31 g/dl (33.0-37.0); PLATELET COUNT 310 K/mm3 (130-400); RED BLOOD COUNT 3.05 M/mm3 (4.10-5.30); REDCELL DISTRIBUTION WIDTH-CV 16.7 % (11.5-14.5)
[2019-10-28 08:34] LABS: HEMATOCRIT 26.8 % (37.0-47.0); HEMOGLOBIN 8.3 g/dl (12.5-16.0); MEAN CORPUSCULAR HEMOGLOBIN 27 pg (27.0-31.0)
[2019-10-28 08:40] LABS: ALBUMIN 3.6 gm/dL (3.5-5.0); CALCIUM 10.3 mg/dL (8.4-10.2); CREATININE, serum 9.52 (0.52-1.25); PHOSPHOROUS 6.4 mg/dL (2.5-4.5); POTASSIUM 3.7 mmol/L (3.4-5.0)
[2019-10-28 09:09] LABS: BAND 7 % (0-10); EOSINOPHIL 2 % (0-4); LYMPHOCYTE 7 % (20.0-51.0); METAMYELOCYTE 2 % (0-0); MYELOCYTE 1 % (0-0); NEUTROPHILS 73 % (42.0-75.2)
[2019-10-28 09:10] LABS: ANISOCYTOSIS 1+; PLATELET ESTIMATE NORMAL (NORMAL)
--- NOTE | 2019-10-28 10:54 | NUR ---
Pt alert to person and place but confused to time. Pt IV patent with no redness or infiltration. Pt does want much to eat but did ask for a popsicle. Pt assessment and neuro's completed. Pt denies pain or SOB at this time. Pt's daughter in to see pt this am.
[2019-10-28 11:28] VITALS: BP 142/62; PULSE 77; TEMP 97.8
[2019-10-28 15:57] VITALS: BP 141/60; PULSE 74; TEMP 97.5
[2019-10-28 19:48] VITALS: BP 132/59; PULSE 84; TEMP 97.8
--- NOTE | 2019-10-28 21:30 | NUR ---
Patient in bed, awake. Denies pain. Oriented x4, but very forgetful and slow to respond at times. Ambulated to BR with standby assist and walker. Tolerated well, but is SOB with ambulation. L.S. clear, HR noted to be irregular, no tele ordered. Pt refused SCD's. Denies further needs at this time, will continue to monitor.
[2019-10-28 23:16] VITALS: BP 138/60; PULSE 76; TEMP 98.5
[2019-10-29 03:03] VITALS: BP 137/73; PULSE 82; TEMP 97.9
--- NOTE | 2019-10-29 04:43 | NUR ---
Patient in bed, sleeping. Appears comfortable. Will continue to monitor.
[2019-10-29 06:00] LABS: MEAN CELL VOLUME 88 fl (80.0-100.0); MEAN CORPUSCULAR HGB CONC 31 g/dl (33.0-37.0); MEAN PLATELET VOLUME 10.7 fl (7.4-10.4); PLATELET COUNT 297 K/mm3 (130-400); RED BLOOD COUNT 2.73 M/mm3 (4.10-5.30); REDCELL DISTRIBUTION WIDTH-CV 16.6 % (11.5-14.5)
[2019-10-29 06:07] LABS: HEMATOCRIT 23.9 % (37.0-47.0); HEMOGLOBIN 7.5 g/dl (12.5-16.0); MEAN CORPUSCULAR HEMOGLOBIN 27 pg (27.0-31.0)
[2019-10-29 06:14] LABS: ALBUMIN 3.1 gm/dL (3.5-5.0); CREATININE, serum 9.56 (0.52-1.25); PHOSPHOROUS 5.4 mg/dL (2.5-4.5); POTASSIUM 3.6 mmol/L (3.4-5.0)
[2019-10-29 06:39] LABS: BAND 11 % (0-10); EOSINOPHIL 2 % (0-4); LYMPHOCYTE 11 % (20.0-51.0); METAMYELOCYTE 3 % (0-0); MYELOCYTE 1 % (0-0); NEUTROPHILS 64 % (42.0-75.2)
[2019-10-29 06:40] LABS: ANISOCYTOSIS 1+; PLATELET ESTIMATE NORMAL (NORMAL)
[2019-10-29 07:46] VITALS: BP 151/73; PULSE 82; TEMP 97.8
--- NOTE | 2019-10-29 10:24 | NUR ---
Owen, at [facility], reports that they are able to accept the patient for a skilled stay. SW to inform the patient and family and will continue to follow.
--- NOTE | 2019-10-29 10:59 | NUR ---
Pt alert and oriented this am. Pt processing speed is slow at times for pt to find words. Pt has sister at bedside this am. Pt encouraged to eat breakfast this am. Pt's sister wants to see when he makes rounds today. Pt denies pain. Pt SOB with activity but able to talk with therapist while walking down the recio this am with walker. Pt IV patent no infiltration or redness. Pt has call light in reach. Pt SBA to restroom without issue.
[2019-10-29 11:37] VITALS: BP 106/54; PULSE 77; TEMP 98.1
--- NOTE | 2019-10-29 11:57 | NUR ---
AWA collaborated with the patient's attending, Dr. Brar. Dr. Brar reports that the patient may be able to tentatively discharge later today or tomorrow after having a bedside swallow evaluation. AWA notified and faxed updates to Owen at [facility]. AWA then met with the patient and the patient's sister to review plan. The patient is in agreeance to going to [facility] upon discharge. AWA presented and explained the IM form to the patient. The patient verbalized understanding, signed, and she was provided a copy. AWA to continue to follow.
[2019-10-29 16:15] VITALS: BP 147/69; PULSE 83; TEMP 98.2
--- NOTE | 2019-10-29 19:46 | NUR ---
Pt resting in bed with famil at bedside. Pt alert and oriented but has some slow processing speed noted. Pt IV patent no infiltration or redness. Pt coughs at times. Pt swallow study completed this afternoon. ST states pt swallowed without any issue. Pt Left arm restricted. Pt denies pain or SOB. Pt did have one episode of emesis b\c she smelled the fish and pt does not like fish. Supper reordered for pt.
[2019-10-29 20:30] VITALS: BP 126/50; PULSE 85; TEMP 98.2
--- NOTE | 2019-10-29 20:30 | NUR ---
Initial shift assessment done- visiting with family in room, alert/oriented speech somewhat slow - family states she is much better today with finding the right words- did eat some soup for supper tonight- states having aching pain to left upper arm at times- family states doctor is aware, left wrist fistula has good thrill/bruit/pulse--- will give prn neurontin tonight to help all aches and to help her sleep-pt states that what she does at home- bed alarm on- pt states understanding
[2019-10-29 22:58] VITALS: BP 139/55; PULSE 82; TEMP 98.7
[2019-10-30] VITALS (7 sets, daily range): BP systolic 115–142; BP diastolic 46–75; PULSE 76–85; TEMP 97.5–98.7
--- NOTE | 2019-10-30 06:32 | NUR ---
Quiet night- slept well, states the neurontin worked well for pain/sleep
[2019-10-30 06:44] LABS: MEAN CELL VOLUME 88 fl (80.0-100.0); MEAN CORPUSCULAR HGB CONC 31 g/dl (33.0-37.0); MEAN PLATELET VOLUME 11.2 fl (7.4-10.4); PLATELET COUNT 314 K/mm3 (130-400); RED BLOOD COUNT 2.72 M/mm3 (4.10-5.30); REDCELL DISTRIBUTION WIDTH-CV 16.5 % (11.5-14.5)
[2019-10-30 06:47] LABS: HEMOGLOBIN 7.4 g/dl (12.5-16.0); MEAN CORPUSCULAR HEMOGLOBIN 27 pg (27.0-31.0)
[2019-10-30 06:57] LABS: ALBUMIN 3.2 gm/dL (3.5-5.0); CALCIUM 10.3 mg/dL (8.4-10.2); CREATININE, serum 10.04 (0.52-1.25); PHOSPHOROUS 6.3 mg/dL (2.5-4.5); POTASSIUM 3.8 mmol/L (3.4-5.0)
[2019-10-30 07:39] LABS: BAND 5 % (0-10); EOSINOPHIL 2 % (0-4); LYMPHOCYTE 10 % (20.0-51.0); METAMYELOCYTE 2 % (0-0); MYELOCYTE 1 % (0-0); NEUTROPHILS 71 % (42.0-75.2); PLATELET ESTIMATE NORMAL (NORMAL)
--- NOTE | 2019-10-30 09:50 | NUR ---
PATIENT RETURNS TO THE ROOM FROM WALKING WITH PHYSICAL THERAPY. She is slow but steady. She denies any pain at this time. Sister at bedside.
--- NOTE | 2019-10-30 16:29 | NUR ---
PATIENT RESTING IN BED. SHE IS TALKATIVE. SHE IS COOPERATIVE WITH ALL TASKS
--- NOTE | 2019-10-30 20:30 | NUR ---
Initial shift assessment done- in good spirits today- states feeling better, talking on the phone with a good friend, no requests at this time, VSS, would like the neurontin before bed tonight-
[2019-10-31 03:51] VITALS: BP 113/45; PULSE 84; TEMP 98.6
--- NOTE | 2019-10-31 05:45 | NUR ---
Quiet night- VSS, denies pain- slept well, Up to bathroom just once during the night
[2019-10-31 06:47] LABS: MEAN CELL VOLUME 89 fl (80.0-100.0); MEAN CORPUSCULAR HGB CONC 31 g/dl (33.0-37.0); MEAN PLATELET VOLUME 11.1 fl (7.4-10.4); PLATELET COUNT 325 K/mm3 (130-400); RED BLOOD COUNT 2.67 M/mm3 (4.10-5.30)
[2019-10-31 06:50] LABS: HEMATOCRIT 23.8 % (37.0-47.0); HEMOGLOBIN 7.3 g/dl (12.5-16.0); MEAN CORPUSCULAR HEMOGLOBIN 27 pg (27.0-31.0)
[2019-10-31 07:07] LABS: ALBUMIN 3.3 gm/dL (3.5-5.0); CALCIUM 10.2 mg/dL (8.4-10.2); CREATININE, serum 10.28 (0.52-1.25); PHOSPHOROUS 6.4 mg/dL (2.5-4.5); POTASSIUM 3.9 mmol/L (3.4-5.0)
[2019-10-31 08:23] VITALS: BP 130/52; PULSE 82; TEMP 98.6
[2019-10-31 10:45] LABS: ANISOCYTOSIS 1+; BAND 2 % (0-10); EOSINOPHIL 2 % (0-4); LYMPHOCYTE 17 % (20.0-51.0); NEUTROPHILS 74 % (42.0-75.2); PLATELET ESTIMATE NORMAL (NORMAL)
--- NOTE | 2019-10-31 11:18 | NUR ---
Patient is sitting up in recliner watching TV. States she is tired today, denies pain. Was curious about lab results, especially WBC and creatnine. She was notified of results and disappointed with the WBC result. Appetite was fair, did not really care for breakfast, did request popcicles and was provided with them along with a cup of ice. Respirations are even and nonlabored. Call light and personal items are within reach.
[2019-10-31 12:25] VITALS: BP 143/48; PULSE 72; TEMP 97.8
[2019-10-31] MEDS ORDERED: LEVAQUIN 5500 MG/TA1 PO (14:28)
[2019-10-31] MEDS ORDERED: PHOSLO667 MG PO (14:31)
[2019-10-31] MEDS ORDERED: SODIUM BICARBO650 MG PO (14:32)
--- NOTE | 2019-10-31 14:44 | NUR ---
Patient has received orders to discharge to [facility] skilled this day and social welfare research worker contacted Rosi with [facility] to set-up transportation for 15:00 this day and informed medical staff. aircraft worker faxed discharge information including facesheet, orders and certifications to [facility] ([phone]).
--- NOTE | 2019-10-31 15:37 | NUR ---
Patient discharged to [facility] nursing at 1515. Transportation from [facility] to take patient to facility. Personal belongings sent with patient's family who is to meet patient at facility. Paperwork sent with patient. Attempted to call report to [facility].
== END 2019-10-31 15:15 | DRG 683 ==
LOC: COL.ER 11:54 → MEDICAL 13:35
PROVIDERS: Emergency Medicine; ADMIT Internal Medicine Nephrology
DX: N17.9 Acute kidney failure, unspecified (principal); N39.0 Urinary tract infection, site not specified; I12.0 Hypertensive chronic kidney disease with stage 5 chronic kidney disease or end stage renal disease; E87.2 Acidosis; I28.1 Aneurysm of pulmonary artery; N18.5 Chronic kidney disease, stage 5; J44.9 Chronic obstructive pulmonary disease, unspecified; G43.909 Migraine, unspecified, not intractable, without status migrainosus; E66.9 Obesity, unspecified; E78.5 Hyperlipidemia, unspecified; G25.81 Restless legs syndrome; E83.39 Other disorders of phosphorus metabolism; R73.9 Hyperglycemia, unspecified; R53.81 Other malaise; R31.0 Gross hematuria; B96.20 Unspecified Escherichia coli [E. coli] as the cause of diseases classified elsewhere; F17.210 Nicotine dependence, cigarettes, uncomplicated; Z68.32 Body mass index [BMI] 32.0-32.9, adult; Z85.828 Personal history of other malignant neoplasm of skin
CPT/HCPCS: J0692; J0881; J1956; J2916; J7040; J7050

== ENCOUNTER → 2019-10-21 | Outpatient (CLI) | payer MEDICARE, OTHER ==
[~2019-10-21] MED LIST changes: +LOPRESSOR 225 MG/TAB PO; +NEURONTIN100 MG/CAP PO; +NORVASC 10MG10 MG PO; +THEO-24400 MG PO; +ZOLOFT 50MG50 MG PO
[2019-10-21 13:13] LABS: C-REACTIVE PROTEIN 8.9 mg/dL (0.0-0.9)
== END ==
LOC: ZCOL.LAB 11:55
PROVIDERS: Family Medicine
DX: R31.0 Gross hematuria (principal)

== ENCOUNTER 2019-11-10 14:57 | Inpatient (IN) | payer MEDICARE, OTHER ==
[~2019-11-10] VITALS: Ht 165.1 cm; Wt 89.8 kg
[~2019-11-10 14:57] MED LIST changes: +LOPRESSOR 225 MG/TAB PO; +NEURONTIN100 MG/CAP PO; +NORVASC 10MG10 MG PO; +PHOSLO667 MG PO; +SODIUM BICARBO650 MG PO; +THEO-24400 MG PO; +ZOLOFT 50MG50 MG PO
[2019-11-10 17:23] VITALS: BP 167/66; PULSE 71; TEMP 97.4
--- NOTE | 2019-11-10 18:42 | NUR ---
Pt up to room 306, direct admit from [facility] office. Pt is A&O, independent in room. Pt on room air, no tele. [facility] notified of pt arrival to floor. Verbal orders placed for Lt arm restriction, diet, and labs. 5 page, pharmacy, allergies and med rec completed. LS cta, heart RRR. BS x4. LFA fistula present, thrill and bruit present. 1+ edema to BLE. Pt denies pain, N/V/D, chest pain, SOB, dizziness. Unable to obtain access, this nurse made two attempts with no success. BINA Cortés, attempted w/ no success as well. Labs were obtained. Report given to BINA Cruz and aware of no IV access at this time.
[2019-11-10 19:05] LABS: MEAN CELL VOLUME 92 fl (80.0-100.0); MEAN CORPUSCULAR HGB CONC 29 g/dl (33.0-37.0); MEAN PLATELET VOLUME 10.5 fl (7.4-10.4); PLATELET COUNT 205 K/mm3 (130-400); RED BLOOD COUNT 3.07 M/mm3 (4.10-5.30); REDCELL DISTRIBUTION WIDTH-CV 15.1 % (11.5-14.5)
[2019-11-10 19:12] VITALS: BP 157/69; PULSE 77
[2019-11-10 19:19] LABS: HEMATOCRIT 28.1 % (37.0-47.0); HEMOGLOBIN 8.2 g/dl (12.5-16.0); MEAN CORPUSCULAR HEMOGLOBIN 27 pg (27.0-31.0)
[2019-11-10 19:48] LABS: BAND 1 % (0-10); BASOPHIL 1 % (0-2); LYMPHOCYTE 19 % (20.0-51.0); METAMYELOCYTE 2 % (0-0); MYELOCYTE 1 % (0-0); NEUTROPHILS 73 % (42.0-75.2)
[2019-11-10 19:49] LABS: HYPOCHROMIA 2+
--- NOTE | 2019-11-10 21:30 | NUR ---
Patient assessed at this time. Anesthesia came in and started 20 G IV to right AC. Flushing well. Patient took shower prior to anesthesia getting here. Denies having pain and discomfort, exept to right arm from IV sticks. Denies SOB and dyspnea. Occasional moist cough noted, no sputum production. LS crackles in upper lobes, clear lower lobes. Respirations even and unlabored. HRR. Capillary refill less than 3 seconds. Non-tenting skin turgor. BSA4. Abdomen soft and non-tender. 1+ edema BLE. Voices no questions, needs, or concerns at this time. Resting in bed with call light within reach.
[2019-11-10 21:41] LABS: CALCIUM 10.3 mg/dL (8.4-10.2); CREATININE, serum 10.25 (0.52-1.25); IRON,SERUM 44 ug/dL (35-150); POTASSIUM 4.2 mmol/L (3.4-5.0)
[2019-11-10 21:50] LABS: TOTAL IRON BINDING CAPACITY 398 ug/dL (265-497)
[2019-11-10 23:11] VITALS: BP 162/71; PULSE 71
--- NOTE | 2019-11-10 23:45 | NUR ---
Patient's oxygen level was 82% on room air. Denied having SOB and dyspnea. Respirations even and unlabored. Put on oxygen at 3 L/min via NC. SPO2 increased to 94%.
[2019-11-11] VITALS (18 sets, daily range): BP systolic 118–181; BP diastolic 47–93; PULSE 67–85; TEMP 97.8–98.4
--- NOTE | 2019-11-11 06:15 | NUR ---
Patient has been NPO since midnight for procedure today. Has denied having pain and discomfort. Continues to be on oxygen at 3 L/min via NC. Denies SOB and dyspnea. Resting in bed with eyes closed at this time. Call light is within reach.
[2019-11-11 06:52] LABS: MEAN CELL VOLUME 89 fl (80.0-100.0); MEAN CORPUSCULAR HGB CONC 30 g/dl (33.0-37.0); MEAN PLATELET VOLUME 9.7 fl (7.4-10.4); PLATELET COUNT 248 K/mm3 (130-400); RED BLOOD COUNT 2.64 M/mm3 (4.10-5.30)
--- NOTE | 2019-11-11 06:53 | NUR ---
Consent signed for procedure today.
[2019-11-11 06:54] LABS: HEMATOCRIT 23.6 % (37.0-47.0); MEAN CORPUSCULAR HEMOGLOBIN 27 pg (27.0-31.0)
[2019-11-11 06:58] LABS: ALBUMIN 3.1 gm/dL (3.5-5.0); CALCIUM 9.6 mg/dL (8.4-10.2); CREATININE, serum 9.88 (0.52-1.25); PHOSPHOROUS 7.5 mg/dL (2.5-4.5); POTASSIUM 4.3 mmol/L (3.4-5.0)
[2019-11-11 07:41] LABS: BAND 2 % (0-10); EOSINOPHIL 2 % (0-4); LYMPHOCYTE 19 % (20.0-51.0); NEUTROPHILS 74 % (42.0-75.2); PLATELET ESTIMATE NORMAL (NORMAL)
--- NOTE | 2019-11-11 08:40 | NUR ---
SEE MERGE DOCUMENTATION FOR MEDICATION ADMINISTRATION TIMES AND INTRA/POST PROCEDURE SEDATION ASSESSMENTS.
--- NOTE | 2019-11-11 16:40 | NUR ---
Equity Holder met with patient to discuss discharge plan. Patient is a readmission and was recently discharged from [facility] on 10/31/19 to [facility] for a skilled stay. Prior to skilled stay, patient was living in [place] with her , Prosper (ph#[phone]). Patient has walker and seat riser at home. Patient has Advance Directives in EMR which designate her daughter Maggie (ph#[phone]). Patient's primary care physician is Dr. Hillman who she saw earlier this week on Friday. Prior to skilled stay, patient obtained medications from [facility] pharmacy. Patient states she wants to return home upon discharge. AWA contacted DELORIS Serrano who advised she is fine with either patient returning to [facility] or to home, which ever is recommended. Maggie states patient was to discharge from [facility] this Friday and was going to have [facility] set up. AWA contacted Rosi at [facility] who confirmed patient was to discharge this Friday. AWA spoke with RNVicky about ordering PT/OT. AWA will continue to follow to ensure safe discharge.
--- NOTE | 2019-11-11 18:25 | NUR ---
FIRST UNTIT OF BLOOD STARTED AT 1800, 2 PERSON VERIFY. THIS NURSE STAYED WITH P TFORST 15 MINS, PT HAD NO S/S ADVERSE REACTIONS. RESTING COMFORTABLY. NO CONSERNS OR ISSUES VOICED THIS SHIFT.
--- NOTE | 2019-11-11 19:30 | NUR ---
During report, patient's IV to right AC leaking and occluding easily. Called anesthesia and requested them to come in and start new IV since staff was unable to get IV access yesterday and needed anesthesiology to come in to start IV. Blood stopped, and awaiting for new IV start at this time.
--- NOTE | 2019-11-11 20:00 | NUR ---
Patient assessed at this time. Alert and oriented, and able to make needs known. Denies having pain and discomfort at this time. Dressing to dialysis catheter to right chest is CDI. AV fistula to left forearm with positive bruit and thrill. Denies SOB and dyspnea. On oxygen at 2 L/min via NC. Occasional moist cough, unable to produce sputum. LS CTA in upper lobes, diminished in lower lobes. Respirations even and unlabored. HRR. Capillary refill less than 3 seconds. Non-tenting skin turgor. BSAx4. Abdomen soft and non-tender. 1+ edema to BLE. Voices no questions, needs, or concerns at this time. Resting in bed with call light within reach.
--- NOTE | 2019-11-11 20:30 | NUR ---
Anesthesia in room and started IV to right upper arm. Patient tolerated well. Blood restarted at this time.
--- NOTE | 2019-11-11 21:12 | NUR ---
Blood transfusion completed at this time. Tolerated well. Will get second unit and start.
--- NOTE | 2019-11-11 21:40 | NUR ---
Second unit of blood started at this time after blood was verified by two RNs.
--- NOTE | 2019-11-11 21:55 | NUR ---
Stayed with patient for first 15 minutes of blood administration. Tolerating well. Increased rate from 60 ml/hr to 100 ml/hr.
--- NOTE | 2019-11-11 23:06 | NUR ---
Patient uncomfortable in bed. Brought recliner in room for patient and assisted into it. Reading at this time. Call light is within reach.
[2019-11-11 23:53] LABS: HEPATITIS B SURFACE ANTIBODY <2.0 (()); HEPATITIS B SURFACE ANTIGEN Negative (Negative); HEPATITIS C VIRUS ANTIBODY Negative (Negative)
[2019-11-12 00:24] VITALS: BP 161/74; PULSE 69; TEMP 97.6
[2019-11-12 00:34] VITALS: BP 160/72; PULSE 72; TEMP 97.7
--- NOTE | 2019-11-12 00:35 | NUR ---
2nd unit of blood completed at this time.
[2019-11-12 03:44] VITALS: BP 157/53; PULSE 75; TEMP 98.2
--- NOTE | 2019-11-12 05:46 | NUR ---
Patient has been resting in recliner with legs elevated. Voices no questions, needs, or concerns at this time. Continues on oxygen at 2 L/min via NC. Call light is within reach. Dressing to right chest CDI.
[2019-11-12 06:41] LABS: MEAN CELL VOLUME 88 fl (80.0-100.0); MEAN CORPUSCULAR HGB CONC 31 g/dl (33.0-37.0); MEAN PLATELET VOLUME 9.5 fl (7.4-10.4); PLATELET COUNT 230 K/mm3 (130-400); RED BLOOD COUNT 3.07 M/mm3 (4.10-5.30); REDCELL DISTRIBUTION WIDTH-CV 15.6 % (11.5-14.5)
[2019-11-12 06:49] LABS: HEMOGLOBIN 8.3 g/dl (12.5-16.0); MEAN CORPUSCULAR HEMOGLOBIN 27 pg (27.0-31.0)
[2019-11-12 07:08] LABS: ALBUMIN 3.1 gm/dL (3.5-5.0); CALCIUM 9.5 mg/dL (8.4-10.2); CREATININE, serum 7.24 (0.52-1.25); PHOSPHOROUS 5.9 mg/dL (2.5-4.5)
[2019-11-12 07:25] VITALS: BP 166/61; PULSE 70; TEMP 97.7
[2019-11-12 07:53] LABS: BAND 3 % (0-10); EOSINOPHIL 5 % (0-4); LYMPHOCYTE 18 % (20.0-51.0); METAMYELOCYTE 4 % (0-0); MYELOCYTE 1 % (0-0); NEUTROPHILS 65 % (42.0-75.2); PLATELET ESTIMATE NORMAL (NORMAL)
--- NOTE | 2019-11-12 11:00 | NUR ---
THIS AM PT REFUSED MOST OF PHOSLO, STATED SHE ONLY WANTED ONE. WAS NOT THRILLED BY THE DOSE INCREASE. TOOK FULL DOSE YESTERDAY STATED "I BLEW UP LIKE CRAZY WITH ALL THOSE YESTERDAY, I DONT WANT THAT TO HAPPEN IN DIALYSIS, I DONT WANT THAT MANY OF THOSE." STATED SHE WOULD TAKE 1 TABLET. THIS NURSE INFORMED DR. MENDEZ ABOUT THIS, HE STATED THAT HE WOULD TALK TO PT AND THAT SHE "HAS" TO TAKE IT.
--- NOTE | 2019-11-12 11:54 | NUR ---
First visit from the revenue cycle analyst. No needs right now.
--- NOTE | 2019-11-12 13:00 | NUR ---
PT EATING LUNCH AT THIS TIME. THIS NURSE TOOK PT IN HER MEDS, PT ASKED ABOUT TAKING THE DOSE OF PHOSLO THAT HAS BEEN INCREASED. THIS NURSE STATED THAT DR. MENDEZ STILL WANTED HER TO TAKE IT. SHE SIGHED AND EXPRESSED THAT SHE DIDNT REALLY WANT TO BUT WOULD.
--- NOTE | 2019-11-12 16:47 | NUR ---
Splicing Supervisor followed up with Dr. Brar and RNVicky about PT/OT to be ordered. SW to continue to follow.
[2019-11-12 17:02] VITALS: BP 169/70; PULSE 71; TEMP 98.5
[2019-11-12 19:42] VITALS: BP 161/62; PULSE 76; TEMP 98.2
[2019-11-13] VITALS (7 sets, daily range): BP systolic 156–188; BP diastolic 62–84; PULSE 71–78; TEMP 97.7–99
--- NOTE | 2019-11-13 05:00 | NUR ---
Patient had uneventful night see flowsheet for documented vital signs. No c/o pain or discomfort. Does report feeling tired and weak. Appeared to sleep through the night waking up @ 0600. Patient had no voiced complaints or concerns through the night.
[2019-11-13 05:32] LABS: MEAN CELL VOLUME 88 fl (80.0-100.0); MEAN CORPUSCULAR HGB CONC 30 g/dl (33.0-37.0); MEAN PLATELET VOLUME 9.8 fl (7.4-10.4); PLATELET COUNT 228 K/mm3 (130-400); RED BLOOD COUNT 3.41 M/mm3 (4.10-5.30); REDCELL DISTRIBUTION WIDTH-CV 15.5 % (11.5-14.5)
[2019-11-13 05:34] LABS: HEMOGLOBIN 9.1 g/dl (12.5-16.0); MEAN CORPUSCULAR HEMOGLOBIN 27 pg (27.0-31.0)
[2019-11-13 05:41] LABS: ALBUMIN 3.4 gm/dL (3.5-5.0); CALCIUM 9.9 mg/dL (8.4-10.2); CREATININE, serum 5.65 (0.52-1.25); PHOSPHOROUS 4.5 mg/dL (2.5-4.5); POTASSIUM 3.4 mmol/L (3.4-5.0)
[2019-11-13 07:05] LABS: BAND 6 % (0-10); EOSINOPHIL 3 % (0-4); LYMPHOCYTE 16 % (20.0-51.0); METAMYELOCYTE 1 % (0-0); NEUTROPHILS 65 % (42.0-75.2)
[2019-11-13 07:06] LABS: PLATELET ESTIMATE NORMAL (NORMAL); STOMATOCYTE 1+
--- NOTE | 2019-11-13 08:00 | NUR ---
Received report from the cable ferry operator nurse. Seen patient awake, sitting on bed. Alert and oriented. With G20 peripheral line at right upper arm, with dialysis line at right chest covered with tegaderm, clean, dry and intact. With left arm fistula. On O2 at 2lp, via NC. Denies any pain. No difficulty of breathing noted. Offered application of SCD but patient refused. Re-instructed on 1500ml fluid restriction.
--- NOTE | 2019-11-13 12:40 | NUR ---
Assisted patient in going down to dialysis via wheelchair.
--- NOTE | 2019-11-13 16:30 | NUR ---
Assisted patient in going back to room via wheelchair from dialysis. Patient denies any pain or difficulty of breathing.
--- NOTE | 2019-11-13 18:55 | NUR ---
Endorsed patient to Kelle shift superintendent caustic cresylate nurse. Patient currently asleep. Dinner not yet eaten.
--- NOTE | 2019-11-13 22:23 | NUR ---
PATIENT DOING WELL THROUGHOUT THE NIGHT. DENIES PAIN OR NEED FOR PAIN MEDICATION. R CHEST DIALYSIS CATH CDI WITH GUAZE DRESSING AROUND TUBING. L FA FISTULA THRILL FELT. O2 SATS STABLE ON ROOM AIR. FLAT AFFECT NOTED. DID NOT EAT VERY MUCH OF DINNER. NO FURTHER NEEDS AT THIS TIME. WILL CONTINUE TO MONITOR.
[2019-11-14 04:34] VITALS: BP 140/57; PULSE 73; TEMP 98.3
[2019-11-14 06:02] LABS: MEAN CELL VOLUME 89 fl (80.0-100.0); MEAN CORPUSCULAR HGB CONC 31 g/dl (33.0-37.0); MEAN PLATELET VOLUME 10.1 fl (7.4-10.4); PLATELET COUNT 234 K/mm3 (130-400); RED BLOOD COUNT 3.49 M/mm3 (4.10-5.30); REDCELL DISTRIBUTION WIDTH-CV 15.4 % (11.5-14.5)
[2019-11-14 06:03] LABS: HEMOGLOBIN 9.5 g/dl (12.5-16.0); MEAN CORPUSCULAR HEMOGLOBIN 27 pg (27.0-31.0)
[2019-11-14 06:10] LABS: ALBUMIN 3.5 gm/dL (3.5-5.0); CALCIUM 9.9 mg/dL (8.4-10.2); CREATININE, serum 4.04 (0.52-1.25); PHOSPHOROUS 3.6 mg/dL (2.5-4.5); POTASSIUM 3.5 mmol/L (3.4-5.0)
[2019-11-14 08:49] VITALS: BP 182/88; PULSE 72; TEMP 97.7
[2019-11-14 09:59] LABS: BAND 4 % (0-10); EOSINOPHIL 1 % (0-4); LYMPHOCYTE 17 % (20.0-51.0); NEUTROPHILS 68 % (42.0-75.2); PLATELET ESTIMATE NORMAL (NORMAL)
[2019-11-14 12:11] VITALS: BP 174/83; PULSE 75; TEMP 98.8
[2019-11-14 15:58] VITALS: BP 187/82; PULSE 76; TEMP 97.3
--- NOTE | 2019-11-14 18:23 | NUR ---
PT HAVE UNEVENTFUL DAY. NO ISSUES OR CONSERNS VOICED. B/P REMAINS ELEVATED, NOTED BY PROVIDED; NO MEDS WHERE CHANGED AT THIS TIME.
[2019-11-14 20:32] VITALS: BP 177/81; PULSE 76; TEMP 98
[2019-11-15 00:37] VITALS: BP 149/63; PULSE 70; TEMP 98.1
[2019-11-15 05:17] VITALS: BP 176/76; PULSE 69; TEMP 98
[2019-11-15 06:04] LABS: MEAN CELL VOLUME 88 fl (80.0-100.0); MEAN CORPUSCULAR HGB CONC 30 g/dl (33.0-37.0); MEAN PLATELET VOLUME 9.8 fl (7.4-10.4); PLATELET COUNT 234 K/mm3 (130-400); RED BLOOD COUNT 3.58 M/mm3 (4.10-5.30); REDCELL DISTRIBUTION WIDTH-CV 15.2 % (11.5-14.5)
[2019-11-15 06:09] LABS: HEMATOCRIT 31.6 % (37.0-47.0); HEMOGLOBIN 9.5 g/dl (12.5-16.0); MEAN CORPUSCULAR HEMOGLOBIN 27 pg (27.0-31.0)
[2019-11-15 06:15] LABS: ALBUMIN 3.4 gm/dL (3.5-5.0); CREATININE, serum 6.26 (0.52-1.25); PHOSPHOROUS 4.7 mg/dL (2.5-4.5); POTASSIUM 3.6 mmol/L (3.4-5.0)
--- NOTE | 2019-11-15 06:29 | NUR ---
RESTING QUIETLY. NO N/V. NO c/o PAIN.
--- NOTE | 2019-11-15 07:15 | NUR ---
Seen patient awake, lying on bed. Denies any pain. With INT on Left arm. No difficulty of breathing. Patient not using her O@ via nasal cannula.
[2019-11-15 07:25] VITALS: BP 169/75; PULSE 74; TEMP 98.2
--- NOTE | 2019-11-15 08:30 | NUR ---
Assisted patient via wheelchair to go to dialysis. Patient refuses to take her breakfast, verbalized that she doesn't like the food and she doesn't really eat breakfast anyway.
[2019-11-15 08:41] LABS: BAND 4 % (0-10); EOSINOPHIL 4 % (0-4); LYMPHOCYTE 19 % (20.0-51.0); METAMYELOCYTE 1 % (0-0); MYELOCYTE 1 % (0-0); NEUTROPHILS 66 % (42.0-75.2); PLATELET ESTIMATE NORMAL (NORMAL)
[2019-11-15] MEDS ORDERED: ZESTRIL 20MG TA20 MG PO (10:49)
[2019-11-15] MEDS ORDERED: SODIUM BICARBO650 MG PO (10:52)
--- NOTE | 2019-11-15 12:30 | NUR ---
Patient went back to room via wheelchair from dialysis. Informed her we will process her discharge papers.
--- NOTE | 2019-11-15 13:25 | NUR ---
The patient is to discharge home this day, 11/15 with [facility]. SW presented the IM form to the patient. Patient understood and signed the form. A copy was provided to the patient and original was placed in the chart. Discharge orders were faxed to [facility]. There are no additional needs at this time.
--- NOTE | 2019-11-15 13:30 | NUR ---
Patient awake, sitting in the chair. Discharge instructions given to patient. Peripheral line removed. Patient verbalized she's going home to her daughter's house and was waiting for his son in law.
--- NOTE | 2019-11-15 15:25 | NUR ---
Patient was discharged via wheelchair. No pain noted.
== END 2019-11-15 15:30 | disposition home or self-care (01) | DRG 682 ==
LOC: MEDICAL 14:57
PROVIDERS: ADMIT Internal Medicine Nephrology
PROC: 5A1D70Z Performance of Urinary Filtration, Intermittent, Less than 6 Hours Per Day (ICD-10-PCS; principal; 2019-11-10)
DX: I12.0 Hypertensive chronic kidney disease with stage 5 chronic kidney disease or end stage renal disease (principal); N18.6 End stage renal disease; Q61.3 Polycystic kidney, unspecified; G43.909 Migraine, unspecified, not intractable, without status migrainosus; E78.5 Hyperlipidemia, unspecified; E66.9 Obesity, unspecified; E21.3 Hyperparathyroidism, unspecified; D50.9 Iron deficiency anemia, unspecified; R41.3 Other amnesia; G25.81 Restless legs syndrome; M85.80 Other specified disorders of bone density and structure, unspecified site; Z90.49 Acquired absence of other specified parts of digestive tract; Z90.12 Acquired absence of left breast and nipple; Z87.891 Personal history of nicotine dependence; Z68.32 Body mass index [BMI] 32.0-32.9, adult
CPT/HCPCS: J0882; J1644; J1650; J2250; J2916; J3010; J7030; P9016

== ENCOUNTER → 2019-11-19 | Outpatient (CLI) | payer MEDICARE, OTHER ==
[~2019-11-19] MED LIST changes: +ZESTRIL 20MG TA20 MG PO
== END ==
LOC: MC.RAD 13:57
DX: Z12.31 Encounter for screening mammogram for malignant neoplasm of breast (principal)

== ENCOUNTER 2019-11-23 09:15 | Outpatient (CLI) | payer MEDICARE, OTHER ==
[~2019-11-23] VITALS: Ht 165.1 cm; Wt 84.4 kg
[2019-11-23 09:46] VITALS: BP 162/85; PULSE 71; TEMP 98.8
[2019-11-23] MEDS ORDERED: ZESTRIL 20MG TA20 MG PO (09:54)
[2019-11-23] MEDS ORDERED: SODIUM BICARBO650 MG PO (09:55)
[2019-11-23 11:00] VITALS: BP 179/87; PULSE 72; TEMP 98
--- NOTE | 2019-11-23 11:00 | NUR ---
Back from labeling specialist . Tunneled Catheter site CD&I. Pt denies pain and needs at this time. VSS
[2019-11-23 11:15] VITALS: BP 155/85; PULSE 71; TEMP 98
[2019-11-23 11:34] VITALS: BP 152/78; PULSE 72; TEMP 98
--- NOTE | 2019-11-23 11:37 | NUR ---
No sedation was given. Dr. Abebe said to watch pt for 30 minutes. VSS. no IV to discontinue.
--- NOTE | 2019-11-23 11:43 | NUR ---
Discharge instructions given. Transferred to private car by tavo
== END 2019-11-23 11:44 | disposition home or self-care (01) ==
LOC: COL.CAR 09:15
DX: T82.898A Other specified complication of vascular prosthetic devices, implants and grafts, initial encounter (principal); Z85.828 Personal history of other malignant neoplasm of skin; Z90.49 Acquired absence of other specified parts of digestive tract; Z90.12 Acquired absence of left breast and nipple; Z87.891 Personal history of nicotine dependence; Z53.8 Procedure and treatment not carried out for other reasons
CPT/HCPCS: J1644

== ENCOUNTER 2019-12-02 14:29 | Inpatient (IN) | payer MEDICARE, OTHER ==
[~2019-12-02] VITALS: Ht 167.6 cm; Wt 88.4 kg
[2019-12-02] MEDS ORDERED: COUMADIN 1MG1 MG/TAB PO (14:37)
[2019-12-02 15:17] LABS: MEAN CELL VOLUME 87 fl (80.0-100.0); MEAN CORPUSCULAR HGB CONC 31 g/dl (33.0-37.0); MEAN PLATELET VOLUME 9.6 fl (7.4-10.4); PLATELET COUNT 50 K/mm3 (130-400); RED BLOOD COUNT 3.68 M/mm3 (4.10-5.30); REDCELL DISTRIBUTION WIDTH-CV 14.6 % (11.5-14.5)
[2019-12-02 15:22] LABS: INR 1.3 (0.8-3.0); PROTHROMBIN TIME 15.5 SECONDS (9.7-12.8)
[2019-12-02 15:23] LABS: HEMOGLOBIN 9.8 g/dl (12.5-16.0); MEAN CORPUSCULAR HEMOGLOBIN 27 pg (27.0-31.0)
[2019-12-02 15:30] LABS: ALANINE AMINOTRANSFERASE < 6 U/L (9-52); ALBUMIN 3.7 gm/dL (3.5-5.0); ALKALINE PHOSPHATASE 76 U/L (50-136); ANION GAP 13 mmol/L (7-16); AST,SGOT 27 U/L (15-37); BAND 15 % (0-10); BILIRUBIN,TOTAL 0.4 mg/dL (0.0-1.0); BLOOD UREA NITROGEN 38 mg/dL (7-17); C-REACTIVE PROTEIN 8.6 mg/dL (0.0-0.9); CALCIUM 9.9 mg/dL (8.4-10.2); CARBON DIOXIDE 23 mmol/L (22-30); CHLORIDE 103 mmol/L (98-107); CREATININE, serum 6.04 (0.52-1.25); GLUCOSE 98 mg/dL (74-106); LYMPHOCYTE 8 % (20.0-51.0); METAMYELOCYTE 1 % (0-0); NEUTROPHILS 74 % (42.0-75.2); POTASSIUM 3.5 mmol/L (3.4-5.0); SODIUM 140 mmol/L (137-145); TOTAL PROTEIN 7.4 gm/dL (6.4-8.2)
[2019-12-02 15:31] LABS: PLATELET ESTIMATE DECREASED (NORMAL)
[2019-12-02 15:43] LABS: TROPONIN-I 0.214 ng/mL (0.000-0.035)
[2019-12-02 15:44] LABS: PROLACTIN 42.7 ng/mL (3.0-18.6)
[2019-12-02 16:08] LABS: COLLECTION METHOD CLEAN CATCH
[2019-12-02 16:20] LABS: PH 8 (5-8); SQUAMOUS EPITHELIAL 0-2 /hpf; URINE APPEARANCE Clear; URINE BACTERIA Rare /hpf; URINE BILIRUBIN Negative (NEGATIVE); URINE BLOOD 2+ (NEGATIVE); URINE COLOR Straw; URINE GLUCOSE 1+ (NEGATIVE); URINE KETONE Negative (NEGATIVE); URINE LEUKOCYTE ESTERASE Negative (NEGATIVE); URINE NITRATE Negative (NEGATIVE); URINE PROTEIN(semi-quant) 2+ (NEGATIVE); URINE RBC 20-50 /hpf; URINE UROBILINOGEN Negative (NEGATIVE)
--- NOTE | 2019-12-02 18:30 | NUR ---
patient arrived to room 317 from ER at this time, she is alert/oriented, I have notified of her arrival
[2019-12-02 19:54] VITALS: BP 151/63; PULSE 81; TEMP 98.2
[2019-12-02 20:36] VITALS: BP 151/63; PULSE 81; TEMP 98.2
[2019-12-02 21:53] LABS: TROPONIN-I 3 HR POST INITIAL 0.203 ng/mL (0.000-0.034)
--- NOTE | 2019-12-02 23:00 | NUR ---
PATIENT DOING WELL TONIGHT. 5 PAGE COMPLETED. DIFFICULTY DRAWING LABS, DRAWN BY LIFT DRIVER IN R FOOT. ALERT AND ORIENTED, TIRED. R CHEST CATH NOTED, CDI WITH GUAZE DRESSING. FAILED L ARM FISTULA NOTED. INT TO R AC PATENT AND FLUSHES EASILY. TELE SHOWING SINUS RHYTHM. SEIZURE PRECAUTIONS IN PLACE, SEIZURE PADS TO BED. CALL LIGHT WITHIN REACH, BED ALARM ON. TOOK SCHEDULED MEDICATIONS WITHOUT DIFFICULTY. TO BE NPO AT MIDNIGHT. NO FURTHER NEEDS AT THIS TIME. WILL CONTINUE TO MONITOR.
[2019-12-03] VITALS (7 sets, daily range): BP systolic 127–187; BP diastolic 53–95; PULSE 77–85; TEMP 97.9–98.6
--- NOTE | 2019-12-03 03:50 | NUR ---
BP ELEVATED 177/80. CHECKED AGAIN, 179/81. PRN HYDRALAZINE GIVEN. WILL RECHECK.
[2019-12-03 07:04] LABS: BASO % 0.4 % (0.0-2.0); EOS # 0.1 (0.0-0.7); EOS % 0.9 % (0-4.0); GRAN # 5.3 (1.4-6.5); GRAN % 67.4 % (42.2-75.2); LYMPH # 1.6 (1.2-3.4); LYMPH % 19.9 % (20.0-51.0); MEAN CELL VOLUME 86 fl (80.0-100.0); MEAN CORPUSCULAR HGB CONC 31 g/dl (33.0-37.0); MEAN PLATELET VOLUME 10.8 fl (7.4-10.4); MONO # 0.7 (0.1-0.6); MONO % 8.8 % (1.7-9.3); PLATELET COUNT 77 K/mm3 (130-400); RED BLOOD COUNT 3.23 M/mm3 (4.10-5.30); REDCELL DISTRIBUTION WIDTH-CV 14.7 % (11.5-14.5)
[2019-12-03 07:14] LABS: HEMATOCRIT 27.8 % (37.0-47.0); HEMOGLOBIN 8.6 g/dl (12.5-16.0); MEAN CORPUSCULAR HEMOGLOBIN 27 pg (27.0-31.0)
[2019-12-03 07:19] LABS: ALBUMIN 3.1 gm/dL (3.5-5.0); CALCIUM 9.6 mg/dL (8.4-10.2); CREATININE, serum 7.22 (0.52-1.25); POTASSIUM 3.9 mmol/L (3.4-5.0)
--- NOTE | 2019-12-03 08:54 | NUR ---
Received call from Television Equipment Operator Sherri informing that pt had been scheduled for fistula placement as an outpatient, however had come in through ED for syncopal episode and was admitted as an inpatient. Call placed to Case Management in [place] to verify if procedure could be performed as inpatient and if Medicare would cover it. Received confirmation that procedure would not be covered as inpatient as it is unrelated to stay. Call placed to Katerine MONTESINOS and Sherri DEL CASTILLO to inform.
--- NOTE | 2019-12-03 10:26 | NUR ---
Initial visit; Patient thanked Magneto Specialist for introducing herself and offering God's blessings.
--- NOTE | 2019-12-03 15:34 | NUR ---
cushion worker met with patient to discuss discharge planning. Dr Hillman's nurse was present during interview. Patient lives with her spouse at home and plans to return there upon discharge. Patient was utilizing [facility] and wishes to resume their services upon discharge. Patient denies difficulty obtaining her prescriptions. Worker contacted Carrington with [facility] and they wer providing [facility], physical and occupational therapies. Home health will resume care upon discharge. This is a 30 day readmission for patient.
--- NOTE | 2019-12-03 20:00 | NUR ---
Resting in bed. Assessment complete. Right lower lobe crackles otherwise clear. Heart sounds normal. Bowels active x4. Pulses strong throughout. No edema noted. Left forearm fistula present-no bruit/thrill. Right chest dialysis access CDI. INT right AC flushed without complications. Rates pain 4/10 in head. Provided with PRN tylenol. Denies other needs at this time. Call light in reach.
[2019-12-04] VITALS (10 sets, daily range): BP systolic 130–180; BP diastolic 52–85; PULSE 78–84; TEMP 97.5–98.4
--- NOTE | 2019-12-04 00:36 | NUR ---
Resting in bed. Denied needs. Call light in reach.
--- NOTE | 2019-12-04 01:52 | NUR ---
Resting in bed. Reports ear ache. Last dose of tylenol given at 1950. Patient states she will wait a few more hours. Denies other needs. call light in reach.
--- NOTE | 2019-12-04 03:59 | NUR ---
Patient reports right ear pain 10/. Provided with PRN tylenol. Denies other needs at this time. Call light in reach.
--- NOTE | 2019-12-04 05:09 | NUR ---
Blood pressure 177/84 at 0401. Rechecked at 0505, now 175/83. Provided with PRN hydralazine as ordered. Will recheck in 1 hour. Patient denies needs. Call light in reach.
--- NOTE | 2019-12-04 06:22 | NUR ---
Patient had elevated BP this AM. Provided PRN hydralazine as ordered. Otherwise uneventful night. Resting in bed this AM. Call light in reach.
--- NOTE | 2019-12-04 07:09 | NUR ---
Report given to BINA Perry
[2019-12-04 07:10] LABS: BASO % 0.5 % (0.0-2.0); EOS # 0.1 (0.0-0.7); EOS % 1.4 % (0-4.0); GRAN # 5.9 (1.4-6.5); GRAN % 67.8 % (42.2-75.2); LYMPH # 1.5 (1.2-3.4); LYMPH % 17.8 % (20.0-51.0); MEAN CELL VOLUME 87 fl (80.0-100.0); MEAN CORPUSCULAR HGB CONC 30 g/dl (33.0-37.0); MEAN PLATELET VOLUME 11.1 fl (7.4-10.4); MONO # 0.8 (0.1-0.6); MONO % 8.7 % (1.7-9.3); PLATELET COUNT 123 K/mm3 (130-400); REDCELL DISTRIBUTION WIDTH-CV 15.1 % (11.5-14.5)
[2019-12-04 07:25] LABS: ALBUMIN 3.3 gm/dL (3.5-5.0); CALCIUM 9.7 mg/dL (8.4-10.2); CREATININE, serum 8.69 (0.52-1.25); HEMATOCRIT 28.7 % (37.0-47.0); HEMOGLOBIN 8.7 g/dl (12.5-16.0); MEAN CORPUSCULAR HEMOGLOBIN 26 pg (27.0-31.0); PHOSPHOROUS 6.2 mg/dL (2.5-4.5); POTASSIUM 3.6 mmol/L (3.4-5.0)
[2019-12-04 07:38] LABS: PROLACTIN 30.1 ng/mL (3.0-18.6)
--- NOTE | 2019-12-04 19:11 | NUR ---
PT HAD C/O EARACHE THIS AM, GAVE TYLENOL. NO FURTHER NEEDS VOICED. HAD VISITORS TODAY. NO OTHER NEEDS VOICED.
--- NOTE | 2019-12-04 21:00 | NUR ---
Resting in bed. Assessment complete. Bases bilaterally crackles otherwise clear. Heart sounds normal. Bowels active x4. Pulses present throughout. No edema noted. Dialysis cath to right chest and left forearm fistula-no bruit or thrill present. INT right AC leaking when flushed. Restarted by BINA Nolen in right forearm. Patient reports 7/10 ear pain. Provided with PRN tylenol. Denies other needs at this time. Daughter at bedside. Call light in reach.
--- NOTE | 2019-12-04 23:30 | NUR ---
Systolic 157. Hydralazine ordered for above 150. Provided to patient at this time. Will recheck in 1 hour. Denies needs. Call light in reach.
[2019-12-05] VITALS (7 sets, daily range): BP systolic 139–162; BP diastolic 59–70; PULSE 69–87; TEMP 97.6–98.4
--- NOTE | 2019-12-05 04:22 | NUR ---
BP elevated. Provided with PRN hydralazine as ordered.
--- NOTE | 2019-12-05 06:25 | NUR ---
Patient had elevated blood pressure at beginning of night. Given scheduled BP medications. Was given hydralazine for systolic above 150 x2 doses during night. Otherwise uneventful. Resting in bed this AM. Call light in reach.
--- NOTE | 2019-12-05 06:57 | NUR ---
Report given to BINA Hannon
--- NOTE | 2019-12-05 07:00 | NUR ---
Report received from BINA Whitlock. Pt in bed sleeping, will continue to monitor.
[2019-12-05 08:33] LABS: BASO % 0.4 % (0.0-2.0); EOS # 0.2 (0.0-0.7); GRAN # 5.6 (1.4-6.5); GRAN % 70.8 % (42.2-75.2); LYMPH # 1.2 (1.2-3.4); LYMPH % 15.5 % (20.0-51.0); MEAN CELL VOLUME 88 fl (80.0-100.0); MEAN CORPUSCULAR HGB CONC 30 g/dl (33.0-37.0); MEAN PLATELET VOLUME 10.7 fl (7.4-10.4); MONO # 0.6 (0.1-0.6); MONO % 7.3 % (1.7-9.3); PLATELET COUNT 161 K/mm3 (130-400); RED BLOOD COUNT 3.35 M/mm3 (4.10-5.30); REDCELL DISTRIBUTION WIDTH-CV 15.2 % (11.5-14.5)
[2019-12-05 08:40] LABS: HEMATOCRIT 29.4 % (37.0-47.0); HEMOGLOBIN 8.9 g/dl (12.5-16.0); MEAN CORPUSCULAR HEMOGLOBIN 27 pg (27.0-31.0)
[2019-12-05 09:02] LABS: ALBUMIN 3.3 gm/dL (3.5-5.0); CALCIUM 10.1 mg/dL (8.4-10.2); CREATININE, serum 8.58 (0.52-1.25); POTASSIUM 3.6 mmol/L (3.4-5.0)
[2019-12-05 09:07] LABS: VALPROIC ACID (DEPAKENE) 19.8 ug/mL (50.0-100.0)
[2019-12-05 09:19] LABS: PHOSPHOROUS 7.4 mg/dL (2.5-4.5)
--- NOTE | 2019-12-05 09:50 | NUR ---
Assessment charted. Pt c/o pain to R ear that is 5/10, tylenol provided and looked in ear, no redness but some bulge to ear drum. HD cath dressed. LW AV fistula no bruit or thrill. RFA INT. Denies needs, will cotninue to monitor.
--- NOTE | 2019-12-05 18:29 | NUR ---
Pt resting quietly in bed. Has haad visitors intermittently throughout day. Earrache better since this am. Denies needs, no s/sx of a seizure. Will give bedside shift report to nightshift nurse who will resuem care.
[2019-12-06] VITALS (11 sets, daily range): BP systolic 131–183; BP diastolic 63–93; PULSE 59–84; TEMP 97.6–98.8
--- NOTE | 2019-12-06 04:24 | NUR ---
Pt has had an uneventful night. Pt slept very well between VS. No c/o pain or discomfort at this time. Call light and personal belongings within reach. No further concerns at this time.
[2019-12-06 06:33] LABS: MEAN CELL VOLUME 87 fl (80.0-100.0); MEAN CORPUSCULAR HGB CONC 30 g/dl (33.0-37.0); MEAN PLATELET VOLUME 9.7 fl (7.4-10.4); PLATELET COUNT 191 K/mm3 (130-400); RED BLOOD COUNT 3.45 M/mm3 (4.10-5.30); REDCELL DISTRIBUTION WIDTH-CV 15.5 % (11.5-14.5)
[2019-12-06 06:39] LABS: MEAN CORPUSCULAR HEMOGLOBIN 26 pg (27.0-31.0)
[2019-12-06 06:48] LABS: ALBUMIN 3.3 gm/dL (3.5-5.0); CALCIUM 10.1 mg/dL (8.4-10.2); CREATININE, serum 8.99 (0.52-1.25); POTASSIUM 3.7 mmol/L (3.4-5.0)
[2019-12-06 07:19] LABS: BAND 2 % (0-10); BASOPHIL 1 % (0-2); LYMPHOCYTE 19 % (20.0-51.0); MYELOCYTE 1 % (0-0); NEUTROPHILS 76 % (42.0-75.2); PLATELET ESTIMATE NORMAL (NORMAL)
--- NOTE | 2019-12-06 07:23 | NUR ---
Report given to BINA Perry.
--- NOTE | 2019-12-06 08:27 | NUR ---
SEE MERGE DOCUMENTATION FOR MEDICATION ADMINISTRATION TIMES AND INTRA/POST PROCEDURE SEDATION ASSESSMENTS.
--- NOTE | 2019-12-06 20:06 | NUR ---
Resting in bed. Assessment complete. Right lower lboe crackles otherwise clear. Heart sounds normal. Bowels active x4. Pulses strong throughout. No edema. INT right froearm flushed without complications. Right chest dialysis access-gauze has dime size dry drainage- will closely monitor. Denies pain. Denies other needs at this time. Call light in reach.
--- NOTE | 2019-12-06 23:42 | NUR ---
Resting in bed. Denies pain. Dialysis cath dressing assessed. No change in amount of drainage previously seen. Will continue to monitor.
[2019-12-07 00:20] VITALS: BP 126/50
--- NOTE | 2019-12-07 01:53 | NUR ---
Resting in bed asleep. Call light in reach.
[2019-12-07 04:38] VITALS: BP 136/64; PULSE 80; TEMP 98.8
--- NOTE | 2019-12-07 04:45 | NUR ---
Reports 8/10 ear pain. Provided with PRN tylenol at this time. Denies other needs. Call light in reach.
--- NOTE | 2019-12-07 05:37 | NUR ---
Patient required x1 dose of tylenol for right ear pain throughout the night. Otherwise uneventful night resting in bed this AM. Call light in reach.
[2019-12-07 07:06] LABS: MEAN CELL VOLUME 87 fl (80.0-100.0); MEAN CORPUSCULAR HGB CONC 30 g/dl (33.0-37.0); MEAN PLATELET VOLUME 10.5 fl (7.4-10.4); PLATELET COUNT 184 K/mm3 (130-400); RED BLOOD COUNT 3.23 M/mm3 (4.10-5.30); REDCELL DISTRIBUTION WIDTH-CV 15.5 % (11.5-14.5)
[2019-12-07 07:10] LABS: HEMATOCRIT 28.1 % (37.0-47.0); HEMOGLOBIN 8.5 g/dl (12.5-16.0); MEAN CORPUSCULAR HEMOGLOBIN 26 pg (27.0-31.0)
--- NOTE | 2019-12-07 07:13 | NUR ---
Report given to BINA Bourne
[2019-12-07 07:15] LABS: ALBUMIN 3.1 gm/dL (3.5-5.0); CALCIUM 9.8 mg/dL (8.4-10.2); CREATININE, serum 7.04 (0.52-1.25); PHOSPHOROUS 5.8 mg/dL (2.5-4.5); POTASSIUM 3.6 mmol/L (3.4-5.0)
[2019-12-07 07:50] VITALS: BP 163/74; BP 175/83; PULSE 79; TEMP 98.2
[2019-12-07 08:17] LABS: EOSINOPHIL 5 % (0-4); LYMPHOCYTE 19 % (20.0-51.0); MYELOCYTE 1 % (0-0); NEUTROPHILS 75 % (42.0-75.2); PLATELET ESTIMATE NORMAL (NORMAL)
--- NOTE | 2019-12-07 09:00 | NUR ---
Patient is awake and alert in her room. Denies having any pain. Fresh Ice water provided. Call light and personal items are within reach.
[2019-12-07 09:53] LABS: INR 1.1 (0.8-3.0); PROTHROMBIN TIME 13.3 SECONDS (9.7-12.8)
--- NOTE | 2019-12-07 10:51 | NUR ---
Initial visit; Patient remembered seeing Process Improvement Specialist another time and thanked her for stopping and visiting.
[2019-12-07] MEDS ORDERED: PRINIVIL20 MG PO (10:59)
[2019-12-07] MEDS ORDERED: LASIX 80MG TABL80 MG PO (11:02)
[2019-12-07] MEDS ORDERED: PHOSLO667 MG PO (11:03)
[2019-12-07] MEDS ORDERED: DEPAKOTE ER 25250 MG PO (11:04)
[2019-12-07] MEDS ORDERED: ASPI325T6 PO (11:04)
[2019-12-07] MEDS ORDERED: LIPITOR 40MG TA40 MG PO (11:05)
--- NOTE | 2019-12-07 13:14 | NUR ---
Board Setter met with patient to review discharge plan. Patient to discharge home today. AWA followed up on home health as patient was receiving home health services from [facility]. Patient states she wants to be done with home health and does not feel she needs their services anymore. AWA presented IM form to patient who reviewed form and provided signature. AWA placed form on chart. AWA notified Carrington from [facility] that patient no longer wants home health services. AWA also notified Vicky, Nurse Security Strategist at [facility] of discharge without home health services. Patient does not have any concerns about discharging home today.
[2019-12-07 16:30] VITALS: BP 150/88
--- NOTE | 2019-12-07 17:15 | NUR ---
Dr. Brar requested for me to call Dr. Crook to inquire about patients driving after having a seizure and Dr. Crook notified me that by law patients are not to drive for 6 months after having a seizure. I notified patient of this.
[2019-12-07 17:49] VITALS: BP 150/88
--- NOTE | 2019-12-07 19:23 | NUR ---
Patient discharged home via private vehicle at 1830. Personal belongings taken with mother prior to dialysis. Blood pressure improved prior to discharge.
== END 2019-12-07 18:30 | disposition home or self-care (01) | DRG 64 ==
LOC: COL.ER 14:29 → MEDICAL 16:54
PROVIDERS: Emergency Medicine; ADMIT Internal Medicine Nephrology
PROC: 5A1D70Z Performance of Urinary Filtration, Intermittent, Less than 6 Hours Per Day (ICD-10-PCS; 2019-12-04)
PROC: 0J2SXYZ Change Other Device in Head and Neck Subcutaneous Tissue and Fascia, External Approach (ICD-10-PCS; principal; 2019-12-06)
DX: I63.9 Cerebral infarction, unspecified (principal); N18.6 End stage renal disease; I21.A1 Myocardial infarction type 2; I12.0 Hypertensive chronic kidney disease with stage 5 chronic kidney disease or end stage renal disease; T82.590A Other mechanical complication of surgically created arteriovenous fistula, initial encounter; I28.1 Aneurysm of pulmonary artery; I16.0 Hypertensive urgency; I10 Essential (primary) hypertension; G43.909 Migraine, unspecified, not intractable, without status migrainosus; E66.9 Obesity, unspecified; D63.1 Anemia in chronic kidney disease; E78.5 Hyperlipidemia, unspecified; E27.9 Disorder of adrenal gland, unspecified; D69.6 Thrombocytopenia, unspecified; J44.9 Chronic obstructive pulmonary disease, unspecified; G25.81 Restless legs syndrome; Z68.36 Body mass index [BMI] 36.0-36.9, adult; Z85.828 Personal history of other malignant neoplasm of skin; Z99.2 Dependence on renal dialysis; Z87.891 Personal history of nicotine dependence
CPT/HCPCS: J1644; J1650; J2405; J2997; J7030

== ENCOUNTER 2019-12-21 06:18 | Outpatient (CLI) | payer MEDICARE, OTHER ==
[~2019-12-21] VITALS: Ht 165.1 cm; Wt 89.4 kg
[~2019-12-21 06:18] MED LIST changes: +ASPI325T6 PO; +COUMADIN 1MG1 MG/TAB PO; +DEPAKOTE ER 25250 MG PO; +LASIX 80MG TABL80 MG PO; +LIPITOR 40MG TA40 MG PO; -LOPRESSOR 225 MG/TAB PO; +LOPRESSOR 550 MG/TAB PO; +PRINIVIL20 MG PO
[2019-12-21 07:10] VITALS: BP 147/78; PULSE 81; TEMP 97.6
[2019-12-21] MEDS ORDERED: ASPIRIN 32325 MG/TAB PO (07:21)
[2019-12-21] MEDS ORDERED: LIPITOR 40MG TA40 MG PO (07:23)
[2019-12-21] MEDS ORDERED: PHOSLO667 MG PO (07:25)
[2019-12-21] MEDS ORDERED: DEPAKOTE 250MG250 MG PO (07:43)
[2019-12-21] MEDS ORDERED: LASIX 20MG TABL20 MG PO (07:44)
[2019-12-21] MEDS ORDERED: ZESTRIL 20MG TA20 MG PO (07:46)
[2019-12-21 08:59] LABS: INR 0.9 (0.8-3.0); PROTHROMBIN TIME 10.9 SECONDS (9.7-12.8)
[2019-12-21 10:01] VITALS: BP 168/95; PULSE 82
--- NOTE | 2019-12-21 10:04 | NUR ---
bedside hand off report to ortega sutherland. pt is alert and oriented. family with pt at bedside. dressing c/d/i. pt has no other concerns or needs at this time.
[2019-12-21 10:05] VITALS: BP 173/92; PULSE 85
[2019-12-21 10:20] VITALS: BP 169/90; PULSE 79
[2019-12-21 10:35] VITALS: BP 181/91; PULSE 82
[2019-12-21 10:50] VITALS: BP 18/94; PULSE 83
--- NOTE | 2019-12-21 11:13 | NUR ---
Discharge instructions given to pt.pt verbalizes understanding.Pt escorted out via wheelchair by this nurse.
== END 2019-12-21 11:17 | disposition home or self-care (01) ==
LOC: COL.CAR 06:18
PROVIDERS: Radiology Diagnostic Radiology
DX: T82.41XA Breakdown (mechanical) of vascular dialysis catheter, initial encounter (principal); Z90.49 Acquired absence of other specified parts of digestive tract; Z85.828 Personal history of other malignant neoplasm of skin; Z90.12 Acquired absence of left breast and nipple; Z87.891 Personal history of nicotine dependence; Z79.01 Long term (current) use of anticoagulants; Z79.82 Long term (current) use of aspirin
CPT/HCPCS: C1751; C1769; J1644

== ENCOUNTER 2019-12-29 09:30 | Day surgery (SDC) | payer MEDICARE, OTHER ==
[~2019-12-29] VITALS: Ht 165.1 cm; Wt 86.8 kg
[~2019-12-29 09:30] MED LIST changes: +ASPIRIN 32325 MG/TAB PO; +DEPAKOTE 250MG250 MG PO
[2019-12-29 10:03] LABS: PROTHROMBIN TIME 11.3 SECONDS (9.7-12.8)
[2019-12-29 10:11] LABS: CALCIUM 9.8 mg/dL (8.4-10.2); CREATININE, serum 5.01 (0.52-1.25); POTASSIUM 3.7 mmol/L (3.4-5.0)
[2019-12-29 10:38] VITALS: BP 166/79; PULSE 63; TEMP 97.7
[2019-12-29 12:08] VITALS: BP 133/60; PULSE 76; TEMP 98.4
--- NOTE | 2019-12-29 12:08 | NUR ---
The patient arrived back to [place] [facility] from the recovery room at this time. The patient appears drowsy but arouses easily to her name. The patient's post operative vital signs were started at this time. The patient agrees to try some ice water at this time. The patient's incision to her left upper arm appears clean, dry and intact without redness or edema. A strong thrill was felt at the site at this time. The patient's sister is at her bedside. Will continue to monitor the patient.
[2019-12-29 12:23] VITALS: BP 127/48; PULSE 77; TEMP 98.4
--- NOTE | 2019-12-29 12:23 | NUR ---
The patient appears to be tolerating the water well and agrees to try a muffin at this time. The patient's vital signs appear stable. The patient's sister remains at her bedside. The patient denies any pain or nausea at this time. Will continue to monitor the patient.
[2019-12-29 12:38] VITALS: BP 124/92; PULSE 66
--- NOTE | 2019-12-29 12:38 | NUR ---
The patient appears to be tolerating the food and drink well. The patient denies any pain or nausea at this time. Will continue to monitor the patient. Vital signs appear stable.
[2019-12-29 12:53] VITALS: BP 119/55; PULSE 66
--- NOTE | 2019-12-29 12:53 | NUR ---
The patient has finished her food and drink and voices a desire to be discharged home. The patient's IV was INT'd and she was instructed to get dressed and press her call light when she is ready to review her discharge instructions.
[2019-12-29] MEDS ORDERED: ULTRAM 50MG TAB50 MG PO (13:00)
--- NOTE | 2019-12-29 13:08 | NUR ---
Discharge instructions were reviewed with the patient and her sister at this time. They both verbalized understanding and questions were answered at this time. The patient's IV to her right hand was removed and a pressure dressing was applied to the site. The patient is dressed and ready to be escorted out.
--- NOTE | 2019-12-29 13:14 | NUR ---
The patient was escorted out via wheelchair to a private vehicle by SIMIN Stephenson. The patient's belongings and discharge paperwork were sent with her. The patient's sister is present to drive her home.
== END 2019-12-29 13:14 | disposition home or self-care (01) ==
LOC: SDCO 09:30
PROVIDERS: Surgery
DX: I12.0 Hypertensive chronic kidney disease with stage 5 chronic kidney disease or end stage renal disease (principal); N18.6 End stage renal disease; E66.9 Obesity, unspecified; Q61.3 Polycystic kidney, unspecified; E21.3 Hyperparathyroidism, unspecified; Z85.3 Personal history of malignant neoplasm of breast; Z90.49 Acquired absence of other specified parts of digestive tract; Z90.12 Acquired absence of left breast and nipple; Z79.01 Long term (current) use of anticoagulants; Z79.82 Long term (current) use of aspirin; Z87.891 Personal history of nicotine dependence; G47.33 Obstructive sleep apnea (adult) (pediatric); Z86.73 Personal history of transient ischemic attack (TIA), and cerebral infarction without residual deficits; Z99.2 Dependence on renal dialysis; Z85.828 Personal history of other malignant neoplasm of skin
CPT/HCPCS: J0690; J1644; J2704; J3010; J7030

== ENCOUNTER 2020-01-11 09:04 | Outpatient (CLI) | payer MEDICARE, OTHER ==
[~2020-01-11] VITALS: Ht 165.1 cm; Wt 87.4 kg
[~2020-01-11 09:04] MED LIST changes: +ULTRAM 50MG TAB50 MG PO
[2020-01-11 09:49] VITALS: BP 159/68; PULSE 67; TEMP 97.8
--- NOTE | 2020-01-11 11:47 | NUR ---
NO LABS DRAWN PER DR. LOGAN PRIOR TO PROCEDURE.
--- NOTE | 2020-01-11 12:03 | NUR ---
bedside hand off report to ortega evans. ports are clamped and capped. dressing has small amount of blood from the tech placing the dressing, but no oozing noted at this time. family at bedside with patient. patient has no questions or concerns.
[2020-01-11 12:27] VITALS: BP 164/74; PULSE 69
--- NOTE | 2020-01-11 12:27 | NUR ---
Pt has been back from procedure for about 15 minutes, she did not receive sedation and is awake and alert with reg and unlabored respirations. dialysis catheter site is dressed with clean and dry gauze bandage, caps are covered. pt denies any questions about catheter care. Pt plans to go from here to dialysis. pt never had an IV today, so she is ready to go at this time. mom is here to drive pt to dialysis.
== END 2020-01-11 12:40 | disposition home or self-care (01) ==
LOC: COL.CAR 09:04
DX: N18.6 End stage renal disease (principal); F17.210 Nicotine dependence, cigarettes, uncomplicated; Z85.828 Personal history of other malignant neoplasm of skin; Z90.49 Acquired absence of other specified parts of digestive tract; Z90.12 Acquired absence of left breast and nipple; Z79.01 Long term (current) use of anticoagulants
CPT/HCPCS: J1644

== ENCOUNTER 2020-01-15 15:41 | Inpatient (IN) | payer MEDICARE, OTHER ==
[~2020-01-15] VITALS: Ht 165.1 cm; Wt 85.6 kg
[2020-01-15] VITALS (381 sets, daily range): BP systolic 115–119; BP diastolic 62–75; PULSE 64–66; TEMP 97.8–98; O2SAT 72–100
[2020-01-15 16:09] LABS: MEAN CELL VOLUME 94 fl (80.0-100.0); MEAN CORPUSCULAR HGB CONC 30 g/dl (33.0-37.0); PLATELET COUNT 55 K/mm3 (130-400); RED BLOOD COUNT 3.34 M/mm3 (4.10-5.30); REDCELL DISTRIBUTION WIDTH-CV 18.1 % (11.5-14.5)
[2020-01-15 16:14] LABS: HEMOGLOBIN 9.3 g/dl (12.5-16.0); MEAN CORPUSCULAR HEMOGLOBIN 28 pg (27.0-31.0)
[2020-01-15 16:15] LABS: HEMATOCRIT 31.3 % (37.0-47.0); INR 1.1 (0.8-3.0); PROTHROMBIN TIME 12.7 SECONDS (9.7-12.8)
[2020-01-15 16:19] LABS: ALBUMIN 3.7 gm/dL (3.5-5.0); BILIRUBIN,TOTAL 0.4 mg/dL (0.0-1.0); CALCIUM 9.1 mg/dL (8.4-10.2); CREATININE, serum 6.13 (0.52-1.25); MAGNESIUM 1.7 mg/dL (1.6-2.3); POTASSIUM 3.5 mmol/L (3.4-5.0); TOTAL PROTEIN 6.8 gm/dL (6.4-8.2)
[2020-01-15 16:34] LABS: TROPONIN-I 0.036 ng/mL (0.000-0.035)
[2020-01-15] MEDS ORDERED: AURYXIA1 GM PO (16:34)
[2020-01-15 16:41] LABS: BAND 6 % (0-10); EOSINOPHIL 2 % (0-4); LYMPHOCYTE 23 % (20.0-51.0); METAMYELOCYTE 3 % (0-0); NEUTROPHILS 65 % (42.0-75.2)
[2020-01-15 16:43] LABS: HYPOCHROMIA 3+; PLATELET ESTIMATE DECREASED (NORMAL)
[2020-01-15 16:44] LABS: ANISOCYTOSIS 1+
[2020-01-15] MEDS ORDERED: OMEGA-31 SGL PO (16:49)
--- NOTE | 2020-01-15 17:35 | NUR ---
pT ARRIVED TO ICU FROM ED, DENIES ANY PAIN AT THIS TIME, PT RECIEVED FENT FOR CP PRIOR TO ARRIVAL. A/O X 4, LUNGS CLEAR, PULSES [place]. WILL CONTINUE TO MONITOR PT STATUS AND UPDATE PROVIDER NEEDED.
[2020-01-16] VITALS (759 sets, daily range): BP systolic 113–142; BP diastolic 44–69; PULSE 56–65; TEMP 97.5–98.2; O2SAT 86–100
[2020-01-16 06:16] LABS: MEAN CELL VOLUME 93 fl (80.0-100.0); MEAN CORPUSCULAR HGB CONC 30 g/dl (33.0-37.0); MEAN PLATELET VOLUME 9.7 fl (7.4-10.4); PLATELET COUNT 64 K/mm3 (130-400); RED BLOOD COUNT 2.87 M/mm3 (4.10-5.30); REDCELL DISTRIBUTION WIDTH-CV 17.7 % (11.5-14.5)
[2020-01-16 06:29] LABS: ALBUMIN 3.3 gm/dL (3.5-5.0); CREATININE, serum 6.98 (0.52-1.25); PHOSPHOROUS 7.7 mg/dL (2.5-4.5); POTASSIUM 3.4 mmol/L (3.4-5.0)
[2020-01-16 06:30] LABS: HEMATOCRIT 26.7 % (37.0-47.0); MEAN CORPUSCULAR HEMOGLOBIN 28 pg (27.0-31.0)
--- NOTE | 2020-01-16 07:19 | NUR ---
REPORT RECEIVED FROM CARLEY CURRAN. WENT TO PERFORM BEDSIDE REPORT HOWEVER PATIENT WAS SLEEPING COMFORTABLY.
[2020-01-16 07:38] LABS: BAND 4 % (0-10); LYMPHOCYTE 33 % (20.0-51.0); METAMYELOCYTE 2 % (0-0); NEUTROPHILS 54 % (42.0-75.2); PLATELET ESTIMATE DECREASED (NORMAL)
[2020-01-16 07:39] LABS: MICROCYTOSIS 2+
--- NOTE | 2020-01-16 10:32 | NUR ---
DR MENDEZ HERE TO ROUND ON PATIENT.
--- NOTE | 2020-01-16 12:50 | NUR ---
ATTEMPTED TO CALL REPORT TO CARLOS CURRAN. NURSE BUSY AT THIS TIME. WILL CALL BACK.
--- NOTE | 2020-01-16 13:31 | NUR ---
REPORT GIVEN TO CARLOS CURRAN.
--- NOTE | 2020-01-16 13:50 | NUR ---
PT TRANSFERRED TO MEDICAL ROOM 308 VIA WHEELCHAIR. PT'S BELONGINGS TRANSFERRED WITH PATIENT. CONTACT MADE WITH CARLOS CURRAN UPON TRANSFER.
--- NOTE | 2020-01-16 19:30 | NUR ---
Shift assessment complete. Pt resting in bed, awake, a&o, cooperative c cares. Pt reports continued pain to "chest muscles"; provided c PRN pain med per pt req. Pt denies any other c/o. INT patent. HD cath noted to R chest s complication. O2 per NC. Tele in place. Pt denies further needs. Call light in reach, will continue to monitor.
[2020-01-17 03:11] VITALS: BP 119/52; PULSE 57; TEMP 97.5
[2020-01-17 06:34] LABS: BASO % 0.4 % (0.0-2.0); EOS # 0.3 (0.0-0.7); EOS % 3.4 % (0-4.0); GRAN # 4.4 (1.4-6.5); GRAN % 58.6 % (42.2-75.2); LYMPH % 26.8 % (20.0-51.0); MEAN CELL VOLUME 94 fl (80.0-100.0); MEAN CORPUSCULAR HGB CONC 30 g/dl (33.0-37.0); MEAN PLATELET VOLUME 10.7 fl (7.4-10.4); MONO # 0.7 (0.1-0.6); MONO % 9.5 % (1.7-9.3); PLATELET COUNT 82 K/mm3 (130-400); RED BLOOD COUNT 2.83 M/mm3 (4.10-5.30); REDCELL DISTRIBUTION WIDTH-CV 17.6 % (11.5-14.5)
[2020-01-17 06:47] LABS: HEMATOCRIT 26.7 % (37.0-47.0); HEMOGLOBIN 7.9 g/dl (12.5-16.0); MEAN CORPUSCULAR HEMOGLOBIN 28 pg (27.0-31.0)
[2020-01-17 07:02] LABS: ALBUMIN 3.2 gm/dL (3.5-5.0); CALCIUM 9.3 mg/dL (8.4-10.2); CREATININE, serum 8.47 (0.52-1.25); POTASSIUM 3.7 mmol/L (3.4-5.0)
[2020-01-17 07:03] LABS: PHOSPHOROUS 9.7 mg/dL (2.5-4.5)
[2020-01-17 07:58] VITALS: BP 137/55; PULSE 56; TEMP 97.7
--- NOTE | 2020-01-17 09:27 | NUR ---
Pt assessment completed and charted. Morning medications administerd per JAN. Pt sitting in bed, states she has some chest pain/soreness from chest compressions, rating it 9/10. Received Ultram PRN per JAN. alternating between Ultram and tylenol. Pt denies N/V/D, any other pain, dizziness, lightheadedness. RWR INT IV flushes w/o complications. LAC fistula, bruit and thrill present. Rt chest dialysis catheter covered w/ gauze, CDI. Pt on 2L NC at this time. No other concerns noted. Pt will have dialysis this afternoon.
--- NOTE | 2020-01-17 11:09 | NUR ---
Initial visit; Patient thanked Senior Tableau Developer for looking in on her and offering God's blessings.
[2020-01-17 11:34] VITALS: BP 125/57; PULSE 59; TEMP 97.9
--- NOTE | 2020-01-17 12:01 | NUR ---
SW met with the patient to discuss discharge plan. The patient lives in [place] with her , Brandon (ph#[phone]). She reports independence with ADLs and has a cane and walker. The patient's PCP is Dr. Ciara Hillman and she receives her medications at [facility]. She reports no difficulties obtaining her meds. The patient's DPOA-HC is in EMR. Her DPOA-HC is her daughter, Maggie Nj (ph#[phone]). The patient plans to return home with her upon discharge. No additional needs at this time, but SW to continue to follow.
--- NOTE | 2020-01-17 12:19 | NUR ---
Pt down for dialysis at this time.
[2020-01-17 17:00] VITALS: BP 111/40; PULSE 58; TEMP 98.3
--- NOTE | 2020-01-17 17:52 | NUR ---
Pt back from dialysis, sitting in bed eating irish. Pt c/o pain, states it is not well controlled. Discussed a POC. Pt states she would like to be woken up overnight to take pain medication, will advise shift mechanic nurse. PRN dilaudid administered per MAR. Pts pain is located in chest, soreness from compressions. No other concerns noted.
[2020-01-17 18:59] VITALS: BP 117/50; PULSE 62; TEMP 97.5
--- NOTE | 2020-01-17 20:05 | NUR ---
Shift assessment complete. Pt resting in bed, awake, a&o, cooperative c cares. Pt continued c/o chest soreness, discussed PRN pain medication, alternating APAP et Ultram. PRN Ultram admin at this time per pt req, pain rated "8/10". Pt denies any other c/o. INT patent. O2 per NC. Tele in place. Pt denies any other needs. Call light in reach, will continue to monitor.
[2020-01-17 23:39] VITALS: BP 121/48; PULSE 57; TEMP 98.4
[2020-01-18 02:48] VITALS: BP 123/55; PULSE 57; TEMP 97.8
[2020-01-18 06:39] LABS: MEAN CELL VOLUME 95 fl (80.0-100.0); MEAN CORPUSCULAR HGB CONC 29 g/dl (33.0-37.0); MEAN PLATELET VOLUME 9.9 fl (7.4-10.4); PLATELET COUNT 54 K/mm3 (130-400); RED BLOOD COUNT 2.93 M/mm3 (4.10-5.30); REDCELL DISTRIBUTION WIDTH-CV 17.9 % (11.5-14.5)
[2020-01-18 06:45] LABS: HEMATOCRIT 27.7 % (37.0-47.0); HEMOGLOBIN 8.1 g/dl (12.5-16.0); MEAN CORPUSCULAR HEMOGLOBIN 28 pg (27.0-31.0)
[2020-01-18 06:49] LABS: ALBUMIN 3.4 gm/dL (3.5-5.0); CALCIUM 9.3 mg/dL (8.4-10.2); CREATININE, serum 6.38 (0.52-1.25); PHOSPHOROUS 6.9 mg/dL (2.5-4.5); POTASSIUM 3.7 mmol/L (3.4-5.0)
[2020-01-18 07:49] LABS: BAND 3 % (0-10); EOSINOPHIL 7 % (0-4); LYMPHOCYTE 26 % (20.0-51.0); NEUTROPHILS 57 % (42.0-75.2)
[2020-01-18 07:50] LABS: ANISOCYTOSIS 1+; HYPOCHROMIA 2+; PLATELET ESTIMATE DECREASED (NORMAL); TARGET CELLS 1+
[2020-01-18 07:51] VITALS: BP 131/47; PULSE 57; TEMP 98.5
--- NOTE | 2020-01-18 08:00 | NUR ---
Pt down for dialysis at this time.
[2020-01-18 12:00] VITALS: BP 119/43; PULSE 61; TEMP 97.6
[2020-01-18 16:00] VITALS: BP 138/45; PULSE 59; TEMP 98
--- NOTE | 2020-01-18 17:22 | NUR ---
Pt had student caring for her this morning. Pt tolerated dialysis well. Returned from dialysis, received pain medication that is now scheduled and no longer PRN. Pt has Rt chest dialysis catheter, covered w/ gauze dressing, CDI. LAC fistula, bruit and thrill present. Pt on room air when she returned from dialysis, satting at 94%. States her pain is a soreness to the chest from compressions, hurts to breathe, rating it 9/10. Breathing is unlabored and even. Pt placed O2 back on after lunch. No other concerns noted at this time.
[2020-01-18 20:02] VITALS: BP 126/47; PULSE 66; TEMP 97.6
--- NOTE | 2020-01-18 21:56 | NUR ---
PT PLEASANT AND COMPLAINING OF INTENSE PAIN WITH LOTS OF MOVEMENT. WHEN LYING STILL PAIN SITS AT A 5/10. LYING IN BED WITH TABLE AND WATER AND CALL LIGHT WITHIN REACH. PAIN MEDS GIVEN, FOLLOW UP LATER. PT REFUSING TO PUT OXYGEN BACK ON STATES "I DON'T NEED IT RIGHT NOW". PT ALONE IN ROOM AND REQUESTED LIGHT TO BE TURNED OFF AND DOOR CLOSED. DENIES ANY OTHER NEEDS AT THIS TIME.
[2020-01-18 23:56] VITALS: BP 125/47; PULSE 60; TEMP 98.3
[2020-01-19 04:30] VITALS: BP 125/50; PULSE 54; TEMP 97.7
--- NOTE | 2020-01-19 04:55 | NUR ---
PT IN BED AWAKE WATCHING TV. PT'S VITALS WITHIN NORMAL LIMITS, 02 SATS IN LOW 90'S, BETTER WHEN TAKING DEEP BREATHS. PT SAYING PAIN IN CHEST IS MINIMAL, IV RETAPED REQUESTED. CALL LIGHT WITHIN REACH, WATER ALSO AT BEDSIDE. NO OTHER NEEDS AT THIS TIME.
--- NOTE | 2020-01-19 05:00 | NUR ---
Assessments et notes per this shift reviewed et agreed upon by this RN
[2020-01-19 06:10] LABS: MEAN CELL VOLUME 94 fl (80.0-100.0); MEAN CORPUSCULAR HGB CONC 29 g/dl (33.0-37.0); MEAN PLATELET VOLUME 11.6 fl (7.4-10.4); PLATELET COUNT 83 K/mm3 (130-400); RED BLOOD COUNT 3.48 M/mm3 (4.10-5.30); REDCELL DISTRIBUTION WIDTH-CV 17.7 % (11.5-14.5)
[2020-01-19 06:18] LABS: HEMATOCRIT 32.6 % (37.0-47.0); HEMOGLOBIN 9.6 g/dl (12.5-16.0); MEAN CORPUSCULAR HEMOGLOBIN 28 pg (27.0-31.0)
[2020-01-19 06:25] LABS: ALBUMIN 3.7 gm/dL (3.5-5.0); CALCIUM 10.2 mg/dL (8.4-10.2); CREATININE, serum 6.08 (0.52-1.25); PHOSPHOROUS 5.9 mg/dL (2.5-4.5); POTASSIUM 3.8 mmol/L (3.4-5.0)
[2020-01-19 07:33] LABS: ANISOCYTOSIS 1+; BAND 4 % (0-10); EOSINOPHIL 3 % (0-4); HYPOCHROMIA 2+; LYMPHOCYTE 24 % (20.0-51.0); METAMYELOCYTE 2 % (0-0); MICROCYTOSIS 1+; NEUTROPHILS 51 % (42.0-75.2); PLATELET ESTIMATE DECREASED (NORMAL)
[2020-01-19 08:03] VITALS: BP 132/62; PULSE 55; TEMP 98
--- NOTE | 2020-01-19 10:58 | NUR ---
RECEIVED REPORT FROM DAY SHIFT. UPON ASSESSMENT OF THE PATIENT, SHE IS STABLE, DENIES ANY SHORTNESS OF BREATH, NAUSEA, OR VOMITING. SHE IS RESTING IN BED AT THE MOMENT WAITING ON BREAKFAST TO ARRIVE. SHE HAS NO OTHER NEEDS. UPON CHECKING IN ON THE PATIENT SHE IS UP IN THE CHAIR AND EATING BREAKFAST. SHE REPORTED A 6/10 PAIN AND THEN PAIN MEDICATIONS WERE GIVEN WITH HER MORNING MEDICATIONS. WHEN REASSING HER PAIN IT WAS A 5/10 PAIN BUT SHE IS RESTING OK. NO OTHER COMPLAINTS AT THIS TIME.
[2020-01-19 11:26] LABS: PROTHROMBIN TIME 11.5 SECONDS (9.7-12.8)
[2020-01-19 11:50] VITALS: BP 110/45; PULSE 52; TEMP 97.4
[2020-01-19] MEDS ORDERED: COUMADIN 2MG2 MG/TAB PO (15:23)
[2020-01-19] MEDS ORDERED: CELEBREX 1100 MG/CAP PO (15:24)
[2020-01-19] MEDS ORDERED: TYLENOL 500MG500 MG PO (15:25)
[2020-01-19] MEDS ORDERED: ULTRAM 50MG TAB50 MG PO (15:25)
--- NOTE | 2020-01-19 15:51 | NUR ---
The patient is to discharge back home with her today, 01/19. SW met with the patient and her mother and presented and explained the IM form. The patient verbalized understanding, signed, and she declined a copy. No additional needs at this time.
--- NOTE | 2020-01-19 15:59 | NUR ---
PATIENT HAS BEEN RESTING IN HER BED OR CHAIR THROUGHOUT THE DAY. DISCHARGE ORDERS ARE IN AND JUST PENDING THAT. PATIENT HAS HAD NO COMPLAINTS ALL DAY LONG. PATIENT IS IN HER ROOM GETTING HER CLOTHING ON
[2020-01-20] MEDS ORDERED: ASPIRIN 32325 MG/TAB PO (21:52)
[2020-01-20] MEDS ORDERED: THEO-DUR 2200 MG/TAB PO (22:02)
== END 2020-01-19 16:30 | disposition home or self-care (01) | DRG 640 ==
LOC: COL.ER 15:41 → ICU 16:58 → MEDICAL 01-16 13:56
PROVIDERS: Family Medicine; ADMIT Internal Medicine Nephrology
PROC: 5A1D70Z Performance of Urinary Filtration, Intermittent, Less than 6 Hours Per Day (ICD-10-PCS; principal; 2020-01-17)
DX: E87.70 Fluid overload, unspecified (principal); N18.6 End stage renal disease; G43.909 Migraine, unspecified, not intractable, without status migrainosus; E66.9 Obesity, unspecified; E78.5 Hyperlipidemia, unspecified; I12.9 Hypertensive chronic kidney disease with stage 1 through stage 4 chronic kidney disease, or unspecified chronic kidney disease; Y84.1 Kidney dialysis as the cause of abnormal reaction of the patient, or of later complication, without mention of misadventure at the time of the procedure; E88.81 Metabolic syndrome and other insulin resistance; E27.9 Disorder of adrenal gland, unspecified; D69.6 Thrombocytopenia, unspecified; D63.1 Anemia in chronic kidney disease; R19.7 Diarrhea, unspecified; R09.02 Hypoxemia; E87.6 Hypokalemia; G25.81 Restless legs syndrome; Z68.31 Body mass index [BMI] 31.0-31.9, adult; Z79.01 Long term (current) use of anticoagulants; Z99.2 Dependence on renal dialysis; Z85.828 Personal history of other malignant neoplasm of skin; Z87.891 Personal history of nicotine dependence
CPT/HCPCS: J1170; J1644; J2916; J3010; J7030; Q5105

== ENCOUNTER → 2020-03-21 | Outpatient (CLI) | payer MEDICARE, OTHER ==
[~2020-03-21] MED LIST changes: +AURYXIA1 GM PO; +CELEBREX 1100 MG/CAP PO; +COUMADIN 2MG2 MG/TAB PO; +COUMADIN 3MG3 MG/TAB PO; +OMEGA-31 SGL PO; +THEO-DUR 2200 MG/TAB PO; +TYLENOL 500MG500 MG PO
== END ==
LOC: ZCOL.LAB 17:44
DX: Z11.59 Encounter for screening for other viral diseases (principal); N18.6 End stage renal disease

== ENCOUNTER → 2020-07-14 | Outpatient (CLI) | payer MEDICARE, OTHER ==
[~2020-07-14] VITALS: Ht 165.1 cm; Wt 88.0 kg
[~2020-07-14] MED LIST changes: +FOLIC ACID 11 MG/TA1 PO
[2020-07-14 10:30] VITALS: BP 142/64; PULSE 70
== END ==
LOC: COL.RAD 10:04
DX: N18.6 End stage renal disease (principal)

== ENCOUNTER → 2020-10-19 | Outpatient (CLI) | payer MEDICARE, OTHER | END | disposition still patient (30) | LOC: COL.RAD 08:00 | DX: R06.02 Shortness of breath (principal) ==

== ENCOUNTER → 2020-12-05 | Outpatient (CLI) | payer MEDICARE, OTHER | LOC: MC.RAD 14:45 | DX: Z12.31 Encounter for screening mammogram for malignant neoplasm of breast (principal) ==

== ENCOUNTER → 2021-09-12 | Outpatient (CLI) | payer MEDICARE, OTHER | LOC: COL.RAD 13:30 | DX: Z12.2 Encounter for screening for malignant neoplasm of respiratory organs (principal); F17.210 Nicotine dependence, cigarettes, uncomplicated; I28.8 Other diseases of pulmonary vessels ==

== ENCOUNTER → 2021-10-23 | Outpatient (CLI) | payer MEDICARE, OTHER | LOC: COL.RAD 09:36 | DX: K40.90 Unilateral inguinal hernia, without obstruction or gangrene, not specified as recurrent (principal); N28.1 Cyst of kidney, acquired; I25.10 Atherosclerotic heart disease of native coronary artery without angina pectoris; N18.6 End stage renal disease; Z90.49 Acquired absence of other specified parts of digestive tract ==

== ENCOUNTER → 2022-01-29 | Outpatient (CLI) | payer MEDICARE, OTHER | LOC: MC.RAD 01-15 10:00 | DX: Z12.31 Encounter for screening mammogram for malignant neoplasm of breast (principal) ==

== ENCOUNTER 2022-03-15 09:35 | Inpatient (IN) | payer MEDICARE, OTHER ==
[~2022-03-15] VITALS: Ht 162.6 cm; Wt 104.5 kg
[2022-03-27] VITALS (9 sets, daily range): BP systolic 109–148; BP diastolic 48–60; PULSE 66–75; TEMP 97.5–98.1
--- NOTE | 2022-03-27 07:30 | NUR ---
PT AMBULATED TO BAY 6 WITHOUT DIFFICULTY. VS OBTAINED. CONSENT SIGNED. 20G IV INFUSING NS IN R FOREARM. ASSESSMENT COMPLETED. ORIENTED TO ROOM AND CALL LIGHT. VERBALIZED UNDERSTANDING. CALL LIGHT WITHIN REACH. PT DENIES ANY NEEDS AT THIS TIME. WILL CONTINUE TO MONITOR PT.
[2022-03-27] MEDS ORDERED: PLAVIX 75MG TAB75 MG PO (08:20)
[2022-03-27] MEDS ORDERED: NORVASC 5MG5 MG/TAB PO (08:20)
[2022-03-27] MEDS ORDERED: ZAROXOLYN5 MG PO (08:21)
[2022-03-27] MEDS ORDERED: FISH OIL 500 M1 EAC1 PO (08:22)
[2022-03-27] MEDS ORDERED: TYLENOL 500MG500 MG (08:23)
[2022-03-27] MEDS ORDERED: NATURAL E400 IU PO (08:24)
[2022-03-27 08:53] LABS: CALCIUM 8.8 mg/dL (8.4-10.2); CREATININE, serum 6.98 mg/dL (0.57-1.11); POTASSIUM 4.3 mmol/L (3.5-4.5)
--- NOTE | 2022-03-27 13:28 | NUR ---
PT TO ROOM 327 PER BED WITH REPORT FROM APARNA CURRAN PACU @8027. PT IS A/O X4, VSS, DRESSING TO NECK CDI WITH 4X4 AND MEDIPORE OVER INCISION. ICE OVER DRESSING. PT DENIES PAIN AT THIS TIME. CA 8.5 ON POST OP DRAW. MOTHER AT BEDSIDE.
[2022-03-27 15:11] LABS: BASO % 0.4 % (0.0-2.0); EOS % 0.4 % (0.0-4.0); GRAN # 3.7 K/mm3 (1.4-6.5); GRAN % 82.3 % (42.2-75.2); HEMATOCRIT 37.1 % (37.0-47.0); HEMOGLOBIN 11.4 g/dl (12.5-16.0); LYMPH # 0.5 K/mm3 (1.2-3.4); LYMPH % 11.4 % (20.0-51.0); MEAN CELL VOLUME 100 fl (80.0-100.0); MEAN CORPUSCULAR HEMOGLOBIN 31 pg (27-31); MEAN CORPUSCULAR HGB CONC 31 g/dl (33.0-37.0); MEAN PLATELET VOLUME 9.2 fl (7.4-10.4); MONO # 0.2 K/mm3 (0.1-0.6); MONO % 5.3 % (1.7-9.3); PLATELET COUNT 152 K/mm3 (130-400); RED BLOOD COUNT 3.71 M/mm3 (4.10-5.30); REDCELL DISTRIBUTION WIDTH-CV 13.8 % (11.5-14.5)
--- NOTE | 2022-03-27 19:11 | NUR ---
NOTIFIED DR. MENDEZ OF LAB RESULTS, NEW ORDERS RECIEVED AND ENTERED. NOTIFIED [facility] NURSE NATHAN CURRAN OF ORDER CHANGE.
[2022-03-28] VITALS (7 sets, daily range): BP systolic 115–152; BP diastolic 43–99; PULSE 58–74; TEMP 97.5–98.8
[2022-03-28 06:33] LABS: INR 1.1 (0.8-3.0); PROTHROMBIN TIME 12.5 SECONDS (9.7-12.8)
[2022-03-28 06:37] LABS: CALCIUM 7.1 mg/dL (8.4-10.2)
[2022-03-28 07:05] LABS: THYROID STIMULATING HORMONE 0.744 uIU/mL (0.350-4.940)
--- NOTE | 2022-03-28 07:57 | NUR ---
VOICE MAIL LEFT FOR KIRIT REGAURDING PATIENT CALCIUM LEVEL. PATIENT MADE AWARE OF DIALYSIS TIME BEING AROUND NOON TO ONE TODAY.
--- NOTE | 2022-03-28 08:19 | NUR ---
Return call from Elisa & no new orders at this time. She will be in to see patient.
--- NOTE | 2022-03-28 09:27 | NUR ---
Social Work student met with patient to discuss discharge planning. Patient lives in [place], [place] with her , Prosper. Patient sees Dr. Ciara Hillman for primary care. Patient states that she receives her medications from [facility] in [place]. Patient states that she uses a walker "when needed" and no other form of durable medical equiptment. Patient states that she is independent with her ADL's. Patient has a DP- on file that lists her daughter, Maggie(ph#[phone]). Patient states that she does feel comforable discharging home when ready. *Discharge plan: Home*
--- NOTE | 2022-03-28 11:06 | NUR ---
Patient assisted back to bed sleeping soundly at this time. Will monitor.
--- NOTE | 2022-03-28 13:41 | NUR ---
Initial visit; Traci thanked Supervisor Floor Assembly for looking in on her and offering prayer and God's blessings.
--- NOTE | 2022-03-28 13:47 | NUR ---
Patient in diaylsis with Tayler. rounded prior to dialysis, He removed dressing. Steristrips applied per orders. Percocet prior to dialysis patient having increased throat pain. Pain worse with swallowing. Brusing noted. Will monitor.
[2022-03-28 14:09] LABS: ALKALINE PHOSPHATASE 146 U/L (40-150); ANION GAP 13 mmol/L (7-16); AST,SGOT 8 U/L (5-34); BILIRUBIN,TOTAL 0.3 mg/dL (0.2-1.2); BLOOD UREA NITROGEN 70 mg/dL (10-20); CARBON DIOXIDE 24 mmol/L (23-31); CHLORIDE 103 mmol/L (98-107); CREATININE, serum 9.69 mg/dL (0.57-1.11); GLUCOSE 94 mg/dL (70-99); POTASSIUM 4.8 mmol/L (3.5-4.5); SODIUM 140 mmol/L (136-145); TOTAL PROTEIN 6.6 gm/dL (6.2-8.1)
[2022-03-28 14:13] LABS: ALANINE AMINOTRANSFERASE < 6 U/L (0-55)
--- NOTE | 2022-03-28 14:21 | NUR ---
Patient sitting up in chair in dialysis on her phone. Tums per orders. Will await her return
--- NOTE | 2022-03-28 16:23 | NUR ---
Patient tolerated HD tx with 2L of fluid removed. Next planned HD tx on Friday03/30/22 @ 0830.
--- NOTE | 2022-03-28 18:56 | NUR ---
Patient resting in bed. Pain remains elevated. Percocet per orders, pain increases significantly with swallowing, making it difficult to eat. She did have a salad for dinner. Ice pack provided. Her neck incisions steristrips intact, but brusing & swelling noted. Head of bed elevated. Will report off to nightnurse
--- NOTE | 2022-03-28 21:30 | NUR ---
PT SITTING AT SIDE OF BED, IS TALKING ON PHONE. IS ALERT AND ORIENTED X4. HAS STERI STRIPS TO INCISIONAL AREA OF NECK WITH BRUISING AND MILD SWELLING. TAKES HS MEDS INCLUDING PERCOCET FOR PAIN. INT RFA, FLUSHES WELL. CAROL AV FISTULA. REPORTS PAIN WITH SWALLOWING, REFUSES CHLOROSEPTIC SPRAY.
--- NOTE | 2022-03-29 | NUR ---
PT IN BED, DROWSY. REPORTS MINIMAL RELIEF WITH PERCOCET. DENIES NEED FOR MORE PAIN MEDS AT THIS TIME.
--- NOTE | 2022-03-29 03:57 | NUR ---
PT SITTING IN RECLINER AT BEDSIDE, REPORTS PAIN TO NECK AND THROAT. MEDICATED WITH PERCOCET AT THIS TIME. REFUSED CHLOROSEPTIC SPRAY FOR THROAT, TAKING ICE CHIPS TO SOOTHE.
[2022-03-29 04:22] VITALS: BP 114/95; PULSE 67; TEMP 99.5
[2022-03-29 06:49] LABS: ALKALINE PHOSPHATASE 144 U/L (40-150); ANION GAP 13 mmol/L (7-16); AST,SGOT 10 U/L (5-34); BILIRUBIN,TOTAL 0.3 mg/dL (0.2-1.2); BLOOD UREA NITROGEN 40 mg/dL (10-20); CALCIUM 8.3 mg/dL (8.4-10.2); CARBON DIOXIDE 22 mmol/L (23-31); CHLORIDE 105 mmol/L (98-107); GLUCOSE 90 mg/dL (70-99); SODIUM 140 mmol/L (136-145); TOTAL PROTEIN 6.9 gm/dL (6.2-8.1)
[2022-03-29 06:50] LABS: ALANINE AMINOTRANSFERASE < 6 U/L (0-55)
[2022-03-29 07:57] VITALS: BP 97/84; PULSE 73; TEMP 98.2
--- NOTE | 2022-03-29 08:49 | NUR ---
Patient sitting up in the chair. She tolerated breakfast. Continued pain at her incision/neck. Steristrips intact. Brusing & edema noted. Ice pack offered & refused. Neosporin to her wound to left left. Cleased with NS & gauze prior to application. warm wipes & lotions to legs & feet. Patient thankful for cares given.
[2022-03-29] MEDS ORDERED: ANTACID ULTRA1000 M1 PO (10:43)
[2022-03-29] MEDS ORDERED: GOOD SENSE TRIP1 OI1 TP (10:43)
[2022-03-29] MEDS ORDERED: ROCALTROL0.5 MCG PO (10:44)
[2022-03-29] MEDS ORDERED: AMOXICILLIN/CLA1 TA1 PO (10:45)
--- NOTE | 2022-03-29 11:27 | NUR ---
We reviewed dischage planning. Patient aware she cant leave until after 1500. Patient needs to receive third dose of ancef prior to leaving. called & made aware patient may need pain medication script prior to leaving. Patient understanding.
[2022-03-29] MEDS ORDERED: NORCO 325 MG-51 TAB PO (11:31)
[2022-03-29 12:37] VITALS: BP 108/36; PULSE 62; TEMP 97.8
--- NOTE | 2022-03-29 17:00 | NUR ---
Patient ready for discharge. Ancef prior to discharge per orders, INT DC. One tab pain medication prior to discharge for continued neck/throat pain. We reviewed discharge med list. Patient aware of new scripts at the pharmacy for pick out hand. We reviewed last dose taken. I did call Elisa & verify medication list & list was adjusted & reprinted with new discontinued medication. last dose taken as well as when next does due reviewed with patient so she could understand. Patient given incisions care instructions & we discussed signs and symptoms to call doctor office including low calcium level. Patient aware of follow up appt. She will resume dialysis in Am per normal routine. Labs drawn friday. SHe knows about renal dialysis diet & fluid restrictions and denies questions about diet. Patient wheeled out with all belongigns & her mother taking her home
== END 2022-03-29 17:15 | disposition home or self-care (01) | DRG 674 ==
LOC: INPTSU 03-27 06:42 → SURG 03-27 06:42
PROVIDERS: Nurse Anesthetist, Certified Registered; Registered Nurse; Surgery; ADMIT Internal Medicine Nephrology
PROC: 0GBL0ZZ Excision of Right Superior Parathyroid Gland, Open Approach (ICD-10-PCS; 2022-03-27)
PROC: 0GBM0ZZ Excision of Left Superior Parathyroid Gland, Open Approach (ICD-10-PCS; 2022-03-27)
PROC: 0GBN0ZZ Excision of Right Inferior Parathyroid Gland, Open Approach (ICD-10-PCS; 2022-03-27)
PROC: 0GTH0ZZ Resection of Right Thyroid Gland Lobe, Open Approach (ICD-10-PCS; 2022-03-27)
PROC: 5A1D70Z Performance of Urinary Filtration, Intermittent, Less than 6 Hours Per Day (ICD-10-PCS; 2022-03-27)
PROC: 0GBP0ZZ Excision of Left Inferior Parathyroid Gland, Open Approach (ICD-10-PCS; principal; 2022-03-27 09:00)
DX: N25.81 Secondary hyperparathyroidism of renal origin (principal); L03.116 Cellulitis of left lower limb; I13.2 Hypertensive heart and chronic kidney disease with heart failure and with stage 5 chronic kidney disease, or end stage renal disease; N18.6 End stage renal disease; G43.909 Migraine, unspecified, not intractable, without status migrainosus; E66.9 Obesity, unspecified; E78.5 Hyperlipidemia, unspecified; J44.9 Chronic obstructive pulmonary disease, unspecified; G25.81 Restless legs syndrome; D63.1 Anemia in chronic kidney disease; F17.210 Nicotine dependence, cigarettes, uncomplicated; I50.9 Heart failure, unspecified; G47.33 Obstructive sleep apnea (adult) (pediatric); G89.29 Other chronic pain; Z99.2 Dependence on renal dialysis; Z87.442 Personal history of urinary calculi; Z85.828 Personal history of other malignant neoplasm of skin; Z86.73 Personal history of transient ischemic attack (TIA), and cerebral infarction without residual deficits; Z79.01 Long term (current) use of anticoagulants; Z79.02 Long term (current) use of antithrombotics/antiplatelets; Z68.32 Body mass index [BMI] 32.0-32.9, adult; Z23 Encounter for immunization
CPT/HCPCS: J0610; J0690; J1100; J1644; J2405; J2704; J3010; J7030

== ENCOUNTER → 2022-08-12 | Outpatient (CLI) | payer MEDICARE, OTHER ==
[~2022-08-12] MED LIST changes: +AMOXICILLIN/CLA1 TA1 PO; +ANTACID ULTRA1000 M1 PO; +FISH OIL 500 M1 EAC1 PO; +GOOD SENSE TRIP1 OI1 TP; +NATURAL E400 IU PO; +PLAVIX 75MG TAB75 MG PO; +ROCALTROL0.5 MCG PO; +TYLENOL 500MG500 MG; +ZAROXOLYN5 MG PO
== END ==
LOC: MHCPAIN 12:37
DX: M54.59 Other low back pain (principal); M53.3 Sacrococcygeal disorders, not elsewhere classified; M47.816 Spondylosis without myelopathy or radiculopathy, lumbar region; M48.061 Spinal stenosis, lumbar region without neurogenic claudication
CPT/HCPCS: G0463

== ENCOUNTER → 2022-08-21 | Outpatient (CLI) | payer MEDICARE, OTHER | LOC: COL.VAS 14:13 | DX: I08.1 Rheumatic disorders of both mitral and tricuspid valves (principal) ==

== ENCOUNTER → 2022-09-16 | Outpatient (CLI) | payer MEDICARE, OTHER | LOC: COL.VAS 08-21 13:15 → COL.RAD 08-21 13:15 → COL.VAS 09-17 12:30 → COL.RAD 09-17 12:30 | DX: Z12.2 Encounter for screening for malignant neoplasm of respiratory organs (principal); J43.2 Centrilobular emphysema; F17.210 Nicotine dependence, cigarettes, uncomplicated ==

== ENCOUNTER → 2022-12-24 | Outpatient (CLI) | payer MEDICARE, OTHER | LOC: MHCPAIN 14:26 | DX: M54.50 Low back pain, unspecified (principal); M47.816 Spondylosis without myelopathy or radiculopathy, lumbar region; M53.3 Sacrococcygeal disorders, not elsewhere classified; M48.061 Spinal stenosis, lumbar region without neurogenic claudication | CPT/HCPCS: G0463 ==

== ENCOUNTER → 2023-01-30 | Outpatient (CLI) | payer MEDICARE, OTHER | LOC: COL.RAD 13:34 | DX: M51.36 Other intervertebral disc degeneration, lumbar region (principal); M47.816 Spondylosis without myelopathy or radiculopathy, lumbar region ==

== ENCOUNTER 2023-02-22 14:40 | Inpatient (IN) | payer MEDICARE, OTHER ==
[~2023-02-22] VITALS: Ht 167.6 cm; Wt 100.0 kg
[2023-02-22 15:05] LABS: HEMATOCRIT 38.2 % (37.0-47.0); MEAN CELL VOLUME 94 fl (80.0-100.0); MEAN CORPUSCULAR HEMOGLOBIN 30 pg (27-31); MEAN CORPUSCULAR HGB CONC 31 g/dl (33.0-37.0); MEAN PLATELET VOLUME 8.7 fl (7.4-10.4); PLATELET COUNT 244 K/mm3 (130-400); RED BLOOD COUNT 4.06 M/mm3 (4.10-5.30); REDCELL DISTRIBUTION WIDTH-CV 14.3 % (11.5-14.5)
[2023-02-22 15:24] LABS: ALANINE AMINOTRANSFERASE < 6 U/L (0-55); ALBUMIN 3.4 gm/dL (3.4-4.8); ALKALINE PHOSPHATASE 64 U/L (40-150); ANION GAP 15 mmol/L (7-16); AST,SGOT 10 U/L (5-34); BILIRUBIN,TOTAL 0.4 mg/dL (0.2-1.2); BLOOD UREA NITROGEN 23 mg/dL (10-20); CALCIUM 9.8 mg/dL (8.4-10.2); CARBON DIOXIDE 24 mmol/L (23-31); CHLORIDE 103 mmol/L (98-107); CREATININE, serum 5.64 mg/dL (0.57-1.11); GLUCOSE 118 mg/dL (70-99); MAGNESIUM 2.1 mg/dL (1.6-2.6); PHOSPHOROUS 2.9 mg/dL (2.3-4.7); POTASSIUM 3.6 mmol/L (3.5-4.5); SODIUM 142 mmol/L (136-145); TOTAL PROTEIN 8.2 gm/dL (6.2-8.1)
[2023-02-22 15:27] LABS: TROPONIN-I 0.019 ng/mL (0.00-0.033)
[2023-02-22 16:24] LABS: EOSINOPHIL 4 % (0-4); LYMPHOCYTE 19 % (20.0-51.0); NEUTROPHILS 66 % (42.0-75.2); PLATELET ESTIMATE NORMAL (NORMAL)
[2023-02-22 16:25] LABS: HYPOCHROMIA 1+
[2023-02-22 21:00] VITALS: BP 146/65; PULSE 64; TEMP 98.4
--- NOTE | 2023-02-22 22:40 | NUR ---
PATIENT ADMITTED TO ROOM 308 FROM THE EMERGENCY DEPARTMENT. SHE IS AOX4 AND PLEASANT TO SPEAK WITH. UPON ASSESSMENT SHE ASKED WHY WE WERE KEEPING HER. THIS NURSE STATED THAT SINCE SHE IS CURRENTLY NEEDING 1L OF OXYGEN AND THAT SHE HAD A SYNCOPAL EPISODE THAT THEY WANT THE STAFF TO MONITOR HER OVERNIGHT. SHE IS ACCEPTING TO THIS. NOTABLE WHEEZING BILATERALLY. LUE RESTRICTED, BRUIT/THRILL NOTED FROM FISTULA. SHE IS A CURRENT SMOKER EVERY DAY. CONTINUES ON 1L OF OXYGEN, RA IS HER BASELINE. PT/OT TO SEE PATIENT. CREA- 5.64. BNP- 1132. FLU/COVID NEGATIVE. CXRAY NEGATIVE. NEUROS INTACT. PERRLA. SHE IS SBA IN HER ROOM AND IS IN FALL RISK PRECAUTIONS. DRY COUGH NOTED. NO NAUSEA OR VOMITING. BED IN LOWEST POSITION. CALL LIGHT IN REACH.
[2023-02-23] VITALS (7 sets, daily range): BP systolic 117–156; BP diastolic 46–66; PULSE 59–68; TEMP 97.9–98.3
--- NOTE | 2023-02-23 05:08 | NUR ---
PATIENT HAS SLEPT THROUGHOUT THE NIGHT AND HAS DENIED ANY PAIN OR SHORTNESS OF BREATH. CALL LIGHT IN REACH. BED IN LOWEST POSITION. FALL RISK PROTOCAL FOLLOWED.
[2023-02-23 06:25] LABS: INR 1.1 (0.8-3.0)
[2023-02-23 06:31] LABS: ALBUMIN 2.7 gm/dL (3.4-4.8); CALCIUM 8.9 mg/dL (8.4-10.2); CREATININE, serum 7.93 mg/dL (0.57-1.11); PHOSPHOROUS 4.7 mg/dL (2.3-4.7); POTASSIUM 4.4 mmol/L (3.5-4.5)
[2023-02-23 06:49] LABS: HEMOGLOBIN 10.2 g/dl (12.5-16.0); MEAN CELL VOLUME 97 fl (80.0-100.0); MEAN CORPUSCULAR HEMOGLOBIN 30 pg (27-31); MEAN CORPUSCULAR HGB CONC 31 g/dl (33.0-37.0); MEAN PLATELET VOLUME 9.1 fl (7.4-10.4); PLATELET COUNT 227 K/mm3 (130-400); RED BLOOD COUNT 3.39 M/mm3 (4.10-5.30); REDCELL DISTRIBUTION WIDTH-CV 14.3 % (11.5-14.5)
[2023-02-23 06:58] LABS: HEMATOCRIT 32.7 % (37.0-47.0)
[2023-02-23 07:50] LABS: BAND 1 % (0-10); BASOPHIL 1 % (0-2); EOSINOPHIL 1 % (0-4); HYPOCHROMIA 2+; LYMPHOCYTE 34 % (20.0-51.0); NEUTROPHILS 60 % (42.0-75.2); PLATELET ESTIMATE NORMAL (NORMAL)
--- NOTE | 2023-02-23 08:37 | NUR ---
Assessment complete. Denies pain. Reports productive cough of clear thick sputum. Denies SOA. Reports nasal congestion. Check SpO2 on RA- 90%. Replaced Oxygen at 1L/NC.
--- NOTE | 2023-02-23 12:10 | NUR ---
Rn Patient Services rounds: Rn Patient Services visit attempted. Patient was on phone; Patient told Rn Patient Services she was speaking with her Mother.
--- NOTE | 2023-02-23 16:39 | NUR ---
SW met with pt to complete intake. Pt lives at home with her spouse. Family present. Brandon [phone], and daughter Maggie [phone]. Pt reports independent on all ADLs, but does have walker. PCP Jairo So and gets medications from [facility]. No other needs at this time. SW to await for further recommendations and follow up as needed. DC: Home, when medically ready.
--- NOTE | 2023-02-23 18:28 | NUR ---
Denies SOA with OOB activity. Only reports cough- states "it comes and goes." Sat up in chair this afternoon. Denies pain.
--- NOTE | 2023-02-23 22:30 | NUR ---
Shift completed at 2145. A&Ox4. No pain reported, but pt requested medication for cough. Provider notified and verbal orders received for sputum collection, cough medication, and early breakfast. RFA INT is CDI. On O2 at 1L per NC. Bed alarm on, belongings and call light within reach.
[2023-02-24 03:17] VITALS: BP 154/58; PULSE 66; TEMP 97.6
[2023-02-24 06:17] LABS: HEMOGLOBIN 10.1 g/dl (12.5-16.0); MEAN CELL VOLUME 97 fl (80.0-100.0); MEAN CORPUSCULAR HEMOGLOBIN 29 pg (27-31); MEAN CORPUSCULAR HGB CONC 30 g/dl (33.0-37.0); MEAN PLATELET VOLUME 9.3 fl (7.4-10.4); PLATELET COUNT 217 K/mm3 (130-400); RED BLOOD COUNT 3.47 M/mm3 (4.10-5.30); REDCELL DISTRIBUTION WIDTH-CV 14.2 % (11.5-14.5)
[2023-02-24 06:26] LABS: HEMATOCRIT 33.6 % (37.0-47.0)
[2023-02-24 06:30] LABS: ALBUMIN 2.7 gm/dL (3.4-4.8); CALCIUM 9.3 mg/dL (8.4-10.2); CREATININE, serum 9.74 mg/dL (0.57-1.11); PHOSPHOROUS 6.4 mg/dL (2.3-4.7); POTASSIUM 4.8 mmol/L (3.5-4.5)
--- NOTE | 2023-02-24 07:48 | NUR ---
Assessment complete. Up to side of bed eating breakfast. Denies pain or SOA. Reports cough and that Tessalon Pearls are helpful. O2 1L/NC.
[2023-02-24 07:50] VITALS: BP 129/68; BP 148/59; PULSE 60; PULSE 84; TEMP 97.5; TEMP 98.5
[2023-02-24 08:12] LABS: BAND 1 % (0-10); EOSINOPHIL 3 % (0-4); LYMPHOCYTE 35 % (20.0-51.0); METAMYELOCYTE 1 % (0-0); NEUTROPHILS 49 % (42.0-75.2); PLATELET ESTIMATE NORMAL (NORMAL)
--- NOTE | 2023-02-24 08:40 | NUR ---
Pt to dialysis via wc at this time, per Ro's request.
--- NOTE | 2023-02-24 09:23 | NUR ---
Ro calls tp request cough medications for pt. Annabelle Kaufman, 2 caps, administered po for c/o cough.
[2023-02-24] MEDS ORDERED: BACTRIM 400 MG-1 TAB PO (10:51)
[2023-02-24] MEDS ORDERED: NORVASC 10MG10 MG PO (11:05)
[2023-02-24 11:56] VITALS: BP 123/54; PULSE 64; TEMP 97.6
--- NOTE | 2023-02-24 11:56 | NUR ---
Pt returns to room from dialysis.
--- NOTE | 2023-02-24 13:00 | NUR ---
Cardiopulmonary reports pt is 86% on RA while lying in bed. Kathy Berger APRN notified. Daniel, in social work, notified and will coordinate home oxygen for patient prior to d/c.
--- NOTE | 2023-02-24 16:18 | NUR ---
Discharge instructions reviewed with patient- verbalizes understanding. Waiting on DME to arrive with portable O2 before discharging.
[2023-02-24 16:22] VITALS: BP 144/52; PULSE 62; TEMP 97.4
--- NOTE | 2023-02-24 16:33 | NUR ---
AWA was informed by Nursing staff that [facility] is in need of O2 at discharge today. AWA sent requesting documents to [facility] who agreed to establish and deliver O2 requirements while AWA aquires physician signature for equipment order. AWA contacted LINDSAY Pérez who agreed to sign equipment order. AWA sent a secure email to provide Elisa with the order form as faxing was repeatedly undeliverable.
--- NOTE | 2023-02-24 17:00 | NUR ---
Mat with DME delivered portable oxygen. Pt escorted to private vechile via w/c and discharged home with daughter. Kathy notified that pt is requesting script to be [facility] for Annabelle Kaufman. INT d/c'd with cath tip intact.
== END 2023-02-24 17:00 | disposition home or self-care (01) | DRG 312 ==
LOC: COL.ER 14:40 → EDBEDREQTM 19:58 → COL.ER 20:15 → MEDICAL 20:15
PROVIDERS: Emergency Medicine; Nurse Practitioner; ADMIT Internal Medicine Nephrology
PROC: 5A1D70Z Performance of Urinary Filtration, Intermittent, Less than 6 Hours Per Day (ICD-10-PCS; principal; 2023-02-24)
DX: R55 Syncope and collapse (principal); N18.6 End stage renal disease; I12.0 Hypertensive chronic kidney disease with stage 5 chronic kidney disease or end stage renal disease; R09.02 Hypoxemia; G43.909 Migraine, unspecified, not intractable, without status migrainosus; D63.1 Anemia in chronic kidney disease; G25.81 Restless legs syndrome; J44.9 Chronic obstructive pulmonary disease, unspecified; M85.80 Other specified disorders of bone density and structure, unspecified site; E78.5 Hyperlipidemia, unspecified; E66.9 Obesity, unspecified; F17.210 Nicotine dependence, cigarettes, uncomplicated; Z20.822 Contact with and (suspected) exposure to COVID-19; E21.3 Hyperparathyroidism, unspecified; Z23 Encounter for immunization; Z79.01 Long term (current) use of anticoagulants; Z85.828 Personal history of other malignant neoplasm of skin; Z87.440 Personal history of urinary (tract) infections; Z99.2 Dependence on renal dialysis; Z90.49 Acquired absence of other specified parts of digestive tract; Z68.35 Body mass index [BMI] 35.0-35.9, adult

== ENCOUNTER 2023-02-25 17:16 | Emergency (ER) | payer MEDICARE, OTHER ==
[~2023-02-25] VITALS: Ht 167.6 cm; Wt 90.9 kg
[~2023-02-25 17:16] MED LIST changes: +BACTRIM 400 MG-1 TAB PO
[2023-02-25 17:32] VITALS: TEMP 97.2
[2023-02-25 17:52] LABS: HEMATOCRIT 39.5 % (37.0-47.0); MEAN CELL VOLUME 95 fl (80.0-100.0); MEAN CORPUSCULAR HEMOGLOBIN 30 pg (27-31); MEAN CORPUSCULAR HGB CONC 32 g/dl (33.0-37.0); PLATELET COUNT 231 K/mm3 (130-400); RED BLOOD COUNT 4.15 M/mm3 (4.10-5.30); REDCELL DISTRIBUTION WIDTH-CV 14.3 % (11.5-14.5)
[2023-02-25 18:06] LABS: ALBUMIN 3.2 gm/dL (3.4-4.8); BILIRUBIN,TOTAL 0.4 mg/dL (0.2-1.2); CALCIUM 9.6 mg/dL (8.4-10.2); CREATININE, serum 4.69 mg/dL (0.57-1.11); POTASSIUM 3.7 mmol/L (3.5-4.5); TOTAL PROTEIN 8.1 gm/dL (6.2-8.1)
[2023-02-25 18:11] LABS: HEMOGLOBIN 12.5 g/dl (12.5-16.0)
[2023-02-25 18:31] LABS: BAND 2 % (0-10); BASOPHIL 2 % (0-2); HYPOCHROMIA 1+; LYMPHOCYTE 12 % (20.0-51.0); METAMYELOCYTE 1 % (0-0); NEUTROPHILS 73 % (42.0-75.2); PLATELET ESTIMATE NORMAL (NORMAL)
[2023-02-25 19:16] VITALS: BP 132/58; PULSE 70
== END 2023-02-25 19:17 | disposition home or self-care (01) ==
LOC: COL.ER 17:16
PROVIDERS: Family Medicine
DX: R55 Syncope and collapse (principal); I12.0 Hypertensive chronic kidney disease with stage 5 chronic kidney disease or end stage renal disease; N18.6 End stage renal disease; F17.210 Nicotine dependence, cigarettes, uncomplicated; Z99.2 Dependence on renal dialysis; Z28.310 Unvaccinated for COVID-19; V49.9XXA Car occupant (driver) (passenger) injured in unspecified traffic accident, initial encounter; Y92.410 Unspecified street and highway as the place of occurrence of the external cause
CPT/HCPCS: J7050

== ENCOUNTER 2024-03-12 00:31 | Observation (INO) | payer MEDICARE, OTHER ==
[~2024-03-12] VITALS: Ht 167.6 cm; Wt 90.5 kg
[2024-03-12] VITALS (9 sets, daily range): BP systolic 132–160; BP diastolic 64–98; PULSE 75–84; TEMP 97.1–99.2
[~2024-03-12 00:31] MED LIST changes: +APRESOLINE 10MG10 MG PO; +COZAAR 25MG25 MG/TAB PO
[2024-03-12 00:48] LABS: BASO % 0.2 % (0.0-2.0); EOS # 0.2 K/mm3 (0.0-0.7); EOS % 2.5 % (0.0-4.0); GRAN # 5.4 K/mm3 (1.4-6.5); GRAN % 63.7 % (42.2-75.2); LYMPH # 2.1 K/mm3 (1.2-3.4); LYMPH % 24.9 % (20.0-51.0); MEAN CELL VOLUME 98 fl (80.0-100.0); MEAN CORPUSCULAR HGB CONC 30 g/dl (33.0-37.0); MEAN PLATELET VOLUME 9.7 fl (7.4-10.4); MONO # 0.7 K/mm3 (0.1-0.6); MONO % 7.9 % (1.7-9.3); PLATELET COUNT 348 K/mm3 (130-400); RED BLOOD COUNT 2.97 M/mm3 (4.10-5.30); REDCELL DISTRIBUTION WIDTH-CV 15.7 % (11.5-14.5)
[2024-03-12 00:55] LABS: HEMATOCRIT 29.1 % (37.0-47.0); HEMOGLOBIN 8.7 g/dl (12.5-16.0); MEAN CORPUSCULAR HEMOGLOBIN 29 pg (27-31)
[2024-03-12 00:56] LABS: INR 1.1 (0.8-3.0); PROTHROMBIN TIME 12.4 SECONDS (9.7-12.8)
[2024-03-12 01:11] LABS: ALBUMIN 3.2 g/dL (3.4-4.8); ALKALINE PHOSPHATASE 69 U/L (40-150); ANION GAP 14 mmol/L (7-16); AST,SGOT 7 U/L (5-34); BLOOD UREA NITROGEN 33 mg/dL (10-20); CHLORIDE 106 mEq/L (98-107); CREATININE, serum 8.77 mg/dL (0.57-1.11); GLUCOSE 91 mg/dL (70-99); SODIUM 143 mEq/L (136-145)
[2024-03-12 01:48] LABS: ALANINE AMINOTRANSFERASE < 6 U/L (0-55); POTASSIUM 6.3 mEq/L (3.5-4.5)
[2024-03-12 02:01] LABS: BILIRUBIN,TOTAL < 0.5 mg/dL (0.2-1.2)
[2024-03-12] MEDS ORDERED: Dextrose 50% Water 25 GM/50 ML SYRINGE IV ONE ×3 (02:45→04:15)
[2024-03-12] MEDS ORDERED: Insulin Regular Human (NovoLIN R/HumuLIN R) IV ONE (02:45)
[2024-03-12] MEDS ORDERED: Sodium Zirconium Cyclosilicate for Oral Susp 10 GM PACKET PO ONE (02:45)
[2024-03-12] MEDS ORDERED: Acetaminophen 325 MG TAB PO PRN (03:00)
[2024-03-12] MEDS ORDERED: APRESOLINE50 MG PO (03:16)
[2024-03-12] MEDS ORDERED: COZAAR100 MG PO (03:17)
[2024-03-12] MEDS ORDERED: TOPROL XL100 MG PO (03:24)
[2024-03-12] MEDS ORDERED: DEPAKOTE 125MG125 M1 PO (03:24)
[2024-03-12] MEDS ORDERED: LASIX 80MG TABL80 MG PO (03:26)
[2024-03-12] MEDS ORDERED: BREZTRI AEROS10.7 GM IH (03:32)
[2024-03-12] MEDS ORDERED: PROAIR HFA0.09 MG/AC IH (03:32)
[2024-03-12] MEDS ORDERED: Albuterol 0.083% Neb Soln 2.5 MG/3 ML UD IH PRN (03:45)
[2024-03-12] MEDS ORDERED: hydrALAZINE 20 MG/ML 1 ML VIAL IV PRN (03:45)
[2024-03-12] MEDS ORDERED: Amoxicillin/Clavulanate K+ 500/125 MG TAB PO SCH (04:00)
[2024-03-12] MEDS ORDERED: Dextrose 50% Water 25 GM/50 ML SYRINGE IV PRN (04:45)
[2024-03-12] MEDS ORDERED: Glucagon 1 MG VIAL IM PRN (04:45)
[2024-03-12] MEDS ORDERED: Dextrose (Glucose) 15 GM (4 x 3.75 GM) Chewable TABLET PACK PO PRN (04:45)
[2024-03-12 04:53] LABS: PHOSPHOROUS 3.7 mg/dL (2.3-4.7)
--- NOTE | 2024-03-12 05:40 | NUR ---
PT ARRIVED TO THE MEDICAL FLOOR AROUND 0430HRS TO ROOM 358. PT A&O X 4; VSS WITH B/P A BIT ELEVATED; O2 RA. (NOTE: PT STATED SHE WEARS O2 AT NIGHT. PT GIVEN 2L OF OXYGEN VIA OM PER PT REQUEST). PT DENIED GENERAL PAIN, CHEST PAIN, PALPITATIONS, SOB, N,V,D OR DIZZINESS. ADMISSIONS ASSESSMENT AND MED REC COMPLETED. PT ORIENTED TO ROOM AND HOSPITAL POLICY. PT HAD AN ELEVATED TROPONIN OF 0.051. HOSPITALIST CALLED. 3HRS AND 6HRS TROPONINS ORDERED. PT'S BS WAS 55 SHORTLY BEFORE PT WAS BROUGHT UP TO UNIT FROM ED. PT GIVEN D5 50 IN ED PER ED RN. PT'S BS WAS 283 AT 30MINS AFTER DOSE; 228 AT 1HR AFTER DOSE AND 106 AT 2HRS AFTER DOSE. HOSPITALIST INFORMED AFTER EACH ACCUCHEK. WILL CONTINUE TO MONITOR AND PASS ON TO DAYSHIFT RN ACCUCHEK TIMES FOR REMAINING BS. ALL QUESTIONS AND CONCERNS ADDRESSED WITH PT. PT EXPRESSED NO ADDITIONAL NEEDEDS AT THIS TIME. CALL LIGHT WITHIN.
[2024-03-12] MEDS ORDERED: Budesonide Neb Susp 0.5 MG/2 ML AMP IH SCH (07:00)
--- NOTE | 2024-03-12 07:15 | NUR ---
Pt sitting in bed. A&0 x4. SOB noted. Pt O2 99% on 2L. Pt states she is always SOB. Nasal rocket in place in R nare. 20 G IV intact in R AC. Tele and SCDs in place. Call light within reach. Bed in lowest position.
--- NOTE | 2024-03-12 08:06 | NUR ---
VOICEMAIL LEFT FOR ENT DR WEISS NURSE. CALL BACK NUMBER GIVEN.
--- NOTE | 2024-03-12 08:29 | NUR ---
MD INFORMED OF PATIENTS BLOOD SUGAR TRENDS. INFORMED MD SINCE THIS AM PATINET CONTINUES TO DROP. PER MD CONTOINUE TO FOLLOW ORDERED HYPOGLYCEMIA PROTOCOL.
[2024-03-12] MEDS ORDERED: hydrALAZINE 25 MG TAB PO SCH (09:00)
[2024-03-12] MEDS ORDERED: Sertraline 50 MG TAB PO SCH (09:00)
[2024-03-12] MEDS ORDERED: Divalproex 250 MG Delayed Release TAB PO SCH (09:00)
[2024-03-12] MEDS ORDERED: Budesonide/Glycopyrrolate/Formoterol **** subs to Budesonide + Umeclid/Vilant IH SCH (09:00)
[2024-03-12] MEDS ORDERED: Divalproex 125 MG Delayed Release Sprinkles CAP PO SCH (09:00)
[2024-03-12] MEDS ORDERED: Furosemide 80 MG TAB PO SCH (09:00)
[2024-03-12] MEDS ORDERED: Pantoprazole 40 MG in NS 10 ML IV SCH (09:00)
[2024-03-12] MEDS ORDERED: metOLazone 2.5 MG TAB PO SCH (09:00)
[2024-03-12] MEDS ORDERED: Umeclidinium/Vilanterol 62.5-25 MCG INHALATION/INHALER IH SCH (09:00)
[2024-03-12] MEDS ORDERED: D-Alpha Tocopheryl (Vitamin E) 400 Units CAP PO SCH (09:00)
--- NOTE | 2024-03-12 09:00 | NUR ---
THIS RN SPOKE WITH DR PIERCE. PER PHYSICIAN VARGHESE ESPINAL TO STAY IN PLACE FOR [address] PATIENT TO SEE DR PIERCE ON FRIDAY FOR FOLLOW/UP AND POSS RHINIO ROCKET REMOVAL. PATIENT UPDATED.
--- NOTE | 2024-03-12 10:07 | NUR ---
THIS RN SPOKE WITH DIALYSIS. PER DIALISYS HOLD LASIX, HYDRALAZINE AND METAZOLINE. PATIENT OK TO TAKE OTHER MEDS AND METOPROLOL. CURRENT PLAN IS TO DIALIZE PATIENT AT 1130. SCOT NURSE GIVEN THIS RN EXTENSION AND WAS ALSO UPDATED ON PATIENT BLOOD SUGAR STATUS.
[2024-03-12 10:08] LABS: CALCIUM 7.8 mg/dL (8.4-10.2); CREATININE, serum 9.23 mg/dL (0.57-1.11); POTASSIUM 5.4 mEq/L (3.5-4.5)
--- NOTE | 2024-03-12 10:08 | NUR ---
THIS RN SPOKE WITH CARDIOLOGY. PER CARIDOLOGY PATIEN TO HAVE A STRESS TEST, AND ECHO TODAY. PER CARDIOLOGY OK TO GIVE PATIENT PO MEDS ORDERED.
--- NOTE | 2024-03-12 10:08 | NUR ---
chemical plant worker met with pt to discuss discharge planning. She reports to live with her , Prosper Rangel in [place]. She confirms her daughter, Maggie [phone] is DPOA-HC. SW verified this on file. Pt states she sees Dr. Elsy Hillman and obtains medications from [facility] with no issues. She states she is independent with ADLS and uses no DME. PT/OT Pending Discharge Plan: Home, pending kasia
--- NOTE | 2024-03-12 10:16 | NUR ---
Initial visit attempt; Patient sleeping, Partridge Farmer left card offering Spiritual Care and God's blessings.
--- NOTE | 2024-03-12 10:35 | NUR ---
RN JUST RECIEVED CALL FROM LAB REGRARDING PATIENT BLOOD SUGAR OF 64. LAB INFORMED PATINET HAS BEEN CHECKED MANY TIMES SINCE THEN AND THE MATTER HAS BEEN HANDLED.
[2024-03-12] MEDS ORDERED: Patiromer 8.4 G Oral Susp **** subs to Sodium Zirconium Cyclosilicate 10 G Oral Susp PO SCH (11:09)
[2024-03-12] MEDS ORDERED: AMOXICILLIN/CLA1 TA1 PO (11:26)
[2024-03-12] MEDS ORDERED: NORCO 325 MG-51 TAB PO (11:36)
[2024-03-12] MEDS ORDERED: Sodium Zirconium Cyclosilicate for Oral Susp 10 GM PACKET PO SCH (11:40)
[2024-03-12] MEDS ORDERED: Regadenoson 0.08 MG/ML 5 ML SYRINGE IV SCH (12:00)
--- NOTE | 2024-03-12 13:04 | NUR ---
PATIENT GIVEN DISCHARGE INSTRUCTIONS AND EDUCATION. IV AND TELE REMOVED. ALL OF PATIENTS QUESTIONS ANSWERED. PATIENT AWARE SHE IS TO GO TO [facility] ANYTIME AFTER 1430 FOR A DIALYSIS SESSION. PATIENT VOICED UNDERSTANDING TO THE ABOVE.
--- NOTE | 2024-03-12 13:06 | NUR ---
PATIENT TAKEN TO PATIENT ENTRANCE VIA WHEELCHAIR BY DESK PEN SET ASSEMBLER WHERE SHE LEFT IN STABLE CONDITION, PICKED UP BY HER SON.
[2024-03-12] MEDS ORDERED: Losartan 50 MG TAB PO SCH (21:00)
[2024-03-12] MEDS ORDERED: amLODIPine 10 MG TAB PO SCH (21:00)
[2024-03-12] MEDS ORDERED: Atorvastatin 40 MG TAB PO SCH (21:00)
[2024-03-12] MEDS ORDERED: Folic Acid 1 MG TAB PO SCH (21:00)
== END 2024-03-12 13:07 | disposition home or self-care (01) ==
LOC: COL.ER 00:31 → MEDICAL 03:00
PROVIDERS: Emergency Medicine; Nurse Practitioner Family; ADMIT Internal Medicine
DX: R04.0 Epistaxis (principal); I12.0 Hypertensive chronic kidney disease with stage 5 chronic kidney disease or end stage renal disease; N18.6 End stage renal disease; D63.1 Anemia in chronic kidney disease; I27.20 Pulmonary hypertension, unspecified; E78.5 Hyperlipidemia, unspecified; E87.5 Hyperkalemia; F17.210 Nicotine dependence, cigarettes, uncomplicated; E66.9 Obesity, unspecified; Z99.2 Dependence on renal dialysis; E21.3 Hyperparathyroidism, unspecified; G40.909 Epilepsy, unspecified, not intractable, without status epilepticus; J96.11 Chronic respiratory failure with hypoxia; J44.9 Chronic obstructive pulmonary disease, unspecified; R94.31 Abnormal electrocardiogram [ECG] [EKG]; Z86.73 Personal history of transient ischemic attack (TIA), and cerebral infarction without residual deficits; Z85.3 Personal history of malignant neoplasm of breast; Z79.899 Other long term (current) drug therapy; Z97.8 Presence of other specified devices; Z85.828 Personal history of other malignant neoplasm of skin; Z79.01 Long term (current) use of anticoagulants; Z70.2 Counseling related to sexual behavior and orientation of third party; Z79.02 Long term (current) use of antithrombotics/antiplatelets; Z68.32 Body mass index [BMI] 32.0-32.9, adult
CPT/HCPCS: A9270; A9500-JZ; C9113; G0378; J1815; J2785